=== PATIENT | male | born 1990 ===

== ENCOUNTER 2017-02-26 11:29 | Inpatient (IN) | payer OTHER ==
--- NOTE | 2017-02-26 12:47 | ED PDOC ---
HPI: Abdomen Time Seen by Provider: 02/26/17 11:52 Chief Complaint (Nursing): Abdominal Pain History Per: Patient History/Exam Limitations: no limitations Onset/Duration Of Symptoms: Waxing/Waning, Gradual (2 weeks), Worse Since (this am) Severity: Mild Location Of Pain/Discomfort: Epigastric Quality Of Discomfort: Cramping, Burning Associated Symptoms: Nausea, Vomiting. denies: Fever, Chills, Diarrhea, Back Pain, Chest Pain, Constipation, Urinary Symptoms Exacerbating Factors: Food Alleviating Factors: None Additional History Per: Patient Additional Complaint(s): no trauma no urinary complete Past Medical History Reviewed: Historical Data, Nursing Documentation, Vital Signs Vital Signs: Last Vital Signs Temp 98 F 02/26/17 11:45 Pulse 86 02/26/17 17:26 Resp 16 02/26/17 17:26 BP 119/64 02/26/17 17:26 Pulse Ox 98 02/26/17 17:26 - Medical History PMH: No Chronic Diseases - Surgical History Surgical History: No Surg Hx - Family History Family History: States: Unknown Family Hx - Living Arrangements Living Arrangements: With Family - Social History Current smoker - smoking cessation education provided: No - Home Medications Home Medications: Ambulatory Orders Medication Instructions Recorded Ranitidine HCl [Sunmark Acid 150 mg PO DAILY 02/26/17 [employer]] - Allergies Allergies/Adverse Reactions: Allergies Allergy/AdvReac Type Severity Reaction Status Date / Time No Known Allergies Allergy Verified 02/26/17 11:45 Review of Systems ROS Statement: Except As Marked, All Systems Reviewed And Found Negative Constitutional: Negative for: Fever, Chills Cardiovascular: Negative for: Chest Pain, Palpitations Respiratory: Negative for: Cough, Shortness of Breath Gastrointestinal: Positive for: Nausea, Vomiting, Abdominal Pain. Negative for : Diarrhea, Constipation, Melena, Hematochezia, Hematemesis Genitourinary Male: Negative for: Dysuria, Incontinence, Hematuria, Penile Discharge, Scrotal Pain, Penile Pain Neurological: Negative for: Weakness, Numbness Physical Exam - Reviewed Nursing Documentation Reviewed: Yes Vital Signs Reviewed: Yes - Physical Exam Appears: Positive for: Well, Uncomfortable Head Exam: Positive for: NORMAL INSPECTION, NORMOCEPHALIC Eye Exam: Positive for: Normal appearance, EOMI, PERRL. Negative for: Periorbital swelling, Periorbital tenderness Neck: Positive for: Normal, Painless ROM, Supple Cardiovascular/Chest: Positive for: Regular Rate, Rhythm. Negative for: Chest Non Tender, Edema, Gallop Respiratory: Positive for: Normal Breath Sounds. Negative for: Decreased Breath Sounds, Accessory Muscle Use, Crackles, Rales, Rhonchi, Stridor, Wheezing Gastrointestinal/Abdominal: Positive for: Normal Exam, Bowel Sounds, Soft. Negative for: Tenderness, Mass, Distended, Guarding, Hernia, Asicites Back: Positive for: Normal Inspection. Negative for: L CVA Tenderness, R CVA Tenderness Extremity: Positive for: Normal ROM. 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 Negative for: Motor/Sensory Deficits - Laboratory Results Result Diagrams: 02/26/17 13:10 02/26/17 13:10 - ECG ECG: Positive for: Interpreted By Me ECG Rhythm: Positive for: Normal QRS, Normal ST Segment, Sinus Rhythm. Negative for: ST/T Changes Interpretation Of Abn EKG: rate of 75, no evidence of ischemia O2 Sat by Pulse Oximetry: 98 Pulse Ox Interpretation: Normal - Progress ED Course And Treament: consulted Dr. Guzman will anticoagulant with lovenox and admit to hospitalist. pt agree's with plan. Re-evaluation Time: 17:51 Condition: Unchanged Disposition - Clinical Impression Clinical Impression: Portal vein thrombosis - Patient ED Disposition Is Patient to be Admitted: Yes Counseled Patient/Family Regarding: Studies Performed, Diagnosis, Need For Followup - Disposition Disposition: Routine/Home Disposition Time: 17:53 Condition: STABLE - Pt Status Changed To: Hospital Disposition Of: Inpatient - Admit Certification Admit to Inpatient:: After my assessment, the patient will require hospitalization for at least two midnights. This is because of the severity of symptoms shown, intensity of services needed, and/or the medical risk in this patient being treated as an outpatient. - POA Present On Arrival: Deep Vein Thrombosis / PE
[2017-02-26 13:25] LABS: BASO % 0.5 % (0.0-2.0); EOS # 0.1 K/uL (0.0-0.7); EOS % 1.5 % (0.0-4.0); HEMATOCRIT 40.4 % (35.0-51.0); LYMPH # 1.5 K/uL (1.0-4.3); LYMPH % 23.5 % (20.0-40.0); MEAN CELL VOLUME 85.3 fl (80.0-94.0); MEAN CORPUSCULAR HEMOGLOBIN 27.3 pg (27.0-31.0); MEAN PLATELET VOLUME 8.1 fl (7.2-11.7); MONO # 0.6 K/uL (0.0-0.8); MONO % 9.7 % (0.0-10.0); NEUT # 4.2 K/uL (1.8-7.0); NEUT % 64.8 % (50.0-75.0); NRBC % 0.1 % (0.0-0.0); RED CELL DISTRIBUTION WIDTH 14.5 % (11.5-14.5); WHITE BLOOD COUNT 6.5 K/uL (4.8-10.8)
[2017-02-26 13:32] LABS: ALB/GLOB RATIO 1.1 (1.0-2.1); ALKALINE PHOSPHATASE 226 U/L (38-126); ALT/SGPT 20 U/L (21-72); AMYLASE 83 U/L (30-110); AST/SGOT 65 U/L (17-59); BILIRUBIN,TOTAL 1.3 mg/dl (0.2-1.3); BLOOD UREA NITROGEN 10 mg/dl (9-20); CALCIUM 9.9 mg/dL (8.4-10.2); CARBON DIOXIDE 28 mmol/L (22-30); CHLORIDE 103 mmol/L (98-107); GFR AFRICAN-AMERICAN > 60; GLUCOSE,RANDOM 89 mg/dL (75-110); LIPASE 92 U/L (23-300); POTASSIUM 4.5 MMOL/L (3.6-5.0); SODIUM 146 mmol/l (132-148); TOTAL PROTEIN 8.1 G/DL (6.3-8.2)
[2017-02-26 13:44] LABS: URINE BACTERIA RARE (<OCC); URINE BILIRUBIN SMALL (NEGATIVE); URINE BLOOD NEGATIVE (NEGATIVE); URINE COLOR AMBER (YELLOW); URINE GLUCOSE (UA) NEG (Normal); URINE KETONE NEGATIVE (NEGATIVE); URINE LEUKOCYTE ESTERASE NEG Leu/uL (Negative); URINE PROTEIN 30 mg/dL (NEGATIVE)
--- NOTE | 2017-02-26 15:11 | US ---
HISTORY: ruq abd pain COMPARISON: None. TECHNIQUE: Sonographic evaluation of the right upper quadrant of the abdomen. FINDINGS: LIVER: Measures 13.1 cm in length. Normal echogenicity of the liver parenchyma. Echogenic mass in the superior right hepatic lobe, 5.9 x 6.5 x 6.9 cm. Vascularity demonstrated within the mass. Evaluation with multiphasic post-contrast CT examination is advised. No other hepatic mass is seen. No biliary ductal dilatation. GALLBLADDER: No cholelithiasis. Possible 2 mm polyp. No mural thickening. No pericholecystic fluid. Negative sonographic Turpin's sign. COMMON BILE DUCT: Measures 2 mm. No stones. No dilatation. PANCREAS: No mass. No pancreatic ductal dilatation. Possible intraluminal thrombus in splenic vein near portal confluence. Not definitively demonstrated. RIGHT KIDNEY: Measures 13.1 cm in length. Normal echogenicity. Three simple cysts. Upper pole, 1.2 x 1.3 x 1.5 cm. Mid kidney, 1.3 x 1.4 x 1.5 cm. Lower pole, 1.7 x 1.8 x 2.1 cm. AORTA: No aneurysmal dilatation. IVC: Unremarkable. OTHER FINDINGS: None . IMPRESSION: With 6.9 cm echogenic mass in right lobe of liver. Further evaluation with multiphasic contrast enhanced CT is advised. Possible thrombus within splenic vein near the confluence. Three simple right renal cysts. Possible tiny gallbladder polyp.
[2017-02-26] MEDS ORDERED: Iohexol 300 100 ML IJ ONE (15:19)
[2017-02-26] MEDS ORDERED: Sodium Chloride 0.9% 50 ML IV ONE (15:19)
--- NOTE | 2017-02-26 15:50 | RAD ---
HISTORY: epigastric abd pain COMPARISON: No prior. FINDINGS: BOWEL: Normal. No obstruction. No free air. BONES: Normal. OTHER FINDINGS: None. IMPRESSION: No active disease.
--- NOTE | 2017-02-26 16:42 | CT ---
PROCEDURE: CT Abdomen and Pelvis with contrast HISTORY: Ruq abd pain mass? COMPARISON: Abdominal ultrasound examination 02/26/2017 TECHNIQUE: Contrast dose: 95 mL Omnipaque 300 Radiation dose: Total exam DLP = 734.74 mGy-cm. This CT exam was performed using one or more of the following dose reduction techniques: Automated exposure control, adjustment of the mA and/or kV according to patient size, and/or use of iterative reconstruction technique. FINDINGS: LOWER THORAX: Unremarkable. LIVER: Normal size and contour. Heterogeneous enhancing mass, 7.4 cm, rounded, in the inferior right hepatic lobe. There are areas of relative decreased attenuation within this mass. These do not look like liquids active necrosis. Possible cavernous hemangioma. Consider evaluation with multiphasic contrast enhanced CT. No other hepatic mass. No biliary ductal dilatation. Findings consistent with portal venous thrombosis and splenic venous thrombosis. There is sharp cut off of the splenic vein at the level of the portal confluence with low attenuation seen within the portal vein. GALLBLADDER AND BILE DUCTS: Unremarkable. PANCREAS: Unremarkable. No gross lesion or ductal dilatation. SPLEEN: Unremarkable. ADRENALS: Unremarkable. No mass. KIDNEYS AND URETERS: Bilateral renal cysts. The right renal cysts were demonstrated on ultrasound. Smaller left renal cysts are identified. 3 mm nonobstructing left lower pole renal calculus. . No hydronephrosis. VASCULATURE: Portal venous thrombosis. Splenic venous thrombosis at the level of the confluence. No evidence of abdominal aortic aneurysm. BOWEL: Unremarkable. No obstruction. No gross mural thickening. APPENDIX: Normal appendix. PERITONEUM: Unremarkable. No free fluid. No free air. LYMPH NODES: Unremarkable. No enlarged lymph nodes. BLADDER: Unremarkable. REPRODUCTIVE: Normal prostate BONES: No acute fracture. OTHER FINDINGS: None. IMPRESSION: 7.4 cm mass in the inferior right hepatic lobe. Recommend evaluation with multiphasic contrast enhanced computed tomography utilizing hemangioma protocol. Portal venous thrombosis in splenic venous thrombosis. Nonobstructing 3 mm left lower pole renal calculus. Small bilateral renal cysts.
[2017-02-26] MEDS ORDERED: Enoxaparin 100 mg Syringe SC STA ×2 (17:35→18:01)
[2017-02-26 17:36] LABS: PARTIAL THROMBOPLASTIN TIME 27.4 SECONDS (23.3-32.5)
[2017-02-26 17:54] VITALS: BMI 24.5
--- NOTE | 2017-02-26 17:55 | CP.PCM.HP ---
History of Present Illness - History of Present Illness History of Present Illness: Chief Complaint: Stomach Pain HPI: 26 year old male with no past medical history presents with a two-week history of moderate to severe burning midepigastric abdominal pain, worsening with eating. Patient has not been able to eat properly for past 2 weeks, and has sustained mild weight loss. In the emergency room, patient was found to have portal and splenic vein thrombosis as well as possible cavernous hemangioma in liver. Will obtain triple phase CT for further evaluation. Hypercoagulable work up in process, surgery consult ordered in ER. Lovenox full AC given, one dose. Will start patient on Eliquis. Otherwise no complaints at this time, vitals are stable, no acute distress. Discussed with surgery, IR, and ER physicians. ROS: Per HPI, all other systems reviewed negative by me PMH: denies PSH: denies FH: denies SH: denies tobacco, etoh, ivdu ALLERGIES: NKDA MEDICATIONS: reviewed and as below EXAM Temp Pulse Resp BP Pulse Ox 98.5 F 95 H 18 116/70 98 02/26/17 17:51 02/26/17 17:51 02/26/17 17:51 02/26/17 17:51 02/26/17 17:54 GENERAL APPEARANCE: Well developed, well nourished, alert and cooperative, and appears to be in no acute distress. HEAD: normocephalic, atraumatic EYES: PERRL, EOMI. Vision is grossly intact. EARS: External auditory canals clear, hearing grossly intact. NOSE: No nasal discharge. THROAT: Oral cavity and pharynx normal. No inflammation, swelling, exudate, or lesions. NECK: Neck supple, non-tender without lymphadenopathy, masses or thyromegaly. CARDIAC: Normal S1 and S2. No S3, S4 or murmurs. Rhythm is regular. LUNGS: Clear to auscultation and percussion without rales, rhonchi, wheezing or diminished breath sounds. ABDOMEN: mild generalized tenderness. Positive bowel sounds. Soft, nondistended. No guarding or rebound. No masses. MUSKULOSKELETAL: Adequately aligned spine. ROM intact spine and extremities. BACK: Examination of the spine reveals no spinal deformity, symmetry of spinal muscles, EXTREMITIES: No significant deformity or joint abnormality. No edema. NEUROLOGICAL: CN II-XII intact. Strength and sensation symmetric and intact throughout. Reflexes 2+ throughout. SKIN: Skin normal color, texture and turgor with no lesions or eruptions. PSYCHIATRIC: The mental examination revealed the patient was oriented to person , place, and time. Normal affect. LABS: 02/26/17 13:10 02/26/17 13:[address] ABD: LIVER: Normal size and contour. Heterogeneous enhancing mass, 7.4 cm, rounded, in the inferior right hepatic lobe. There are areas of relative decreased attenuation within this mass. These do not look like liquids active necrosis. Possible cavernous hemangioma. Consider evaluation with multiphasic contrast enhanced CT. No other hepatic mass. No biliary ductal dilatation. Findings consistent with portal venous thrombosis and splenic venous thrombosis. There is sharp cut off of the splenic vein at the level of the portal confluence with low attenuation seen within the portal vein. KIDNEYS AND URETERS: Bilateral renal cysts. The right renal cysts were demonstrated on ultrasound. Smaller left renal cysts are identified. 3 mm nonobstructing left lower pole renal calculus. . No hydronephrosis. VASCULATURE: Portal venous thrombosis. Splenic venous thrombosis at the level of the confluence. No evidence of abdominal aortic aneurysm. BOWEL: Unremarkable. No obstruction. No gross mural thickening. IMPRESSION: 7.4 cm mass in the inferior right hepatic lobe. Recommend evaluation with multiphasic contrast enhanced computed tomography utilizing hemangioma protocol. Portal venous thrombosis in splenic venous thrombosis. Nonobstructing 3 mm left lower pole renal calculus. Small bilateral renal cysts. EKG NSR, rate 75, no signs of acute ischemia or infarct ACTIVE MEDICATIONS Ondansetron [Zofran Inj] 4 mg IVP Q6 PRN Enoxaparin [Lovenox] 90 mg SC STAT STA Anticoagulation Clinical Indication: DVT/PE Prevention Apixaban [Eliquis] 10 mg PO DAILY Anticoagulation Clinical Indication: Other Other: PORTAL AND SPLENIC VEIN THROMBOSIS ASSESSMENT AND PLAN 26 year old male with no past medical history presents with a two-week history of moderate to severe burning midepigastric abdominal pain, worsening with eating. Patient has not been able to eat properly for past 2 weeks, and has sustained mild weight loss. In the emergency room, patient was found to have portal and splenic vein thrombosis as well as possible cavernous hemangioma in liver. Will obtain triple phase CT for further evaluation. Hypercoaguable work up in process, surgery consult ordered in ER. Lovenox full AC given, one dose. Will start patient on Eliquis. Otherwise no complaints at this time, vitals are stable, no acute distress. Discussed with surgery and ER physicians. Portal and Splenic Vein Thromboses + CT imaging study for portal and splenic vein thromboses Surgery and IR consults appreciated, discussed. Lovenox 100mg SC given in ER Eliquis 10 mg ordered for tomorrow AM, will give patient voucher for one month supply on D/C Hypercoagulable workup ordered, will follow up Antiphospholipid Antithrombin Factor V Leiden Protein C&S Repeat CBC, CMP tomorrow Possible Hepatic Cavernous Hemangioma no evidence of hemorrhage on CT Triple Phase Study for tomorrow AM Poor PO intake 2/2 abdominal pain with eating Ensure Plus TID VTE ppx SCDs Present on Admission - Present on Admission Any Indicators Present on Admission: No Past Patient History - Past Social History Smoking Status: Never Smoked - PSYCHIATRIC Hx Substance Use: No - SURGICAL HISTORY Hx Surgeries: No - ANESTHESIA Hx Anesthesia: No Meds Allergies/Adverse Reactions: Allergies Allergy/AdvReac Type Severity Reaction Status Date / Time No Known Allergies Allergy Verified 02/26/17 11:45 Results - Vital Signs Recent Vital Signs: Last Vital Signs Temp 98.5 F 02/26/17 17:51 Pulse 95 H 02/26/17 17:51 Resp 18 02/26/17 17:51 BP 116/70 02/26/17 17:51 Pulse Ox 98 02/26/17 17:54 - Labs Result Diagrams: 02/26/17 13:10 02/26/17 13:10 Labs: Laboratory Results - last 24 hr 02/26/17 02/26/17 13:10 13:25 WBC 6.5 RBC 4.73 Hgb 12.9 Hct 40.4 MCV 85.3 MCH 27.3 MCHC 32.0 L RDW 14.5 Plt Count 250 MPV 8.1 Neut % (Auto) 64.8 Lymph % (Auto) 23.5 [place] % (Auto) 9.7 Eos % (Auto) 1.5 Baso % (Auto) 0.5 Neut # 4.2 Lymph # 1.5 [place] # 0.6 Eos # 0.1 Baso # 0.0 PT 10.7 INR 1.03 APTT 27.4 Sodium 146 Potassium 4.5 Chloride 103 Carbon Dioxide 28 Anion Gap 20 BUN 10 Creatinine 0.9 Est GFR ( Amer) > 60 Est GFR (Non-Af Amer) > 60 Random Glucose 89 Calcium 9.9 Total Bilirubin 1.3 AST 65 H ALT 20 L Alkaline Phosphatase 226 H Troponin I < 0.0120 Total Protein 8.1 Albumin 4.3 Globulin 3.8 Albumin/Globulin Ratio 1.1 Amylase 83 Lipase 92 Urine Color Mallory Urine Clarity Cloudy Urine pH 7.0 Ur Specific [place] 1.028 Urine Protein 30 Urine Glucose (UA) Neg Urine Ketones Negative Urine Blood Negative Urine Nitrate Negative Urine Bilirubin Small Urine Urobilinogen 4.0 Ur Leukocyte Esterase Neg Ur Squamous Epith Cells 1 Amorphous Sediment Rare H Urine Bacteria Rare
[2017-02-26] MEDS ORDERED: Enoxaparin 100 mg Syringe SC SCH (21:00)
--- NOTE | 2017-02-26 21:04 | CP.PCM.CON ---
History of Present Illness - History of Present Illness History of Present Illness: GENERAL SURGERY CONSULT FOR DR. MEJIA 26yoM with no PMHx presents to the ED with abdominal pain. The pain began 2 weeks ago in the epigastric area and became worse 3 days ago. The pain is located in the epigastric area and radiates to the suprapubic area. The pain is worse after eating. He sometimes feels nauseous and vomited a few times yesterday and once this morning, non bloody emesis. His last BM was today and it was normal. Patient also reports some burning after eating and feeling like the "food is coming back up". He takes Ranitidine sometimes for these symptoms which he obtains from his mother in [facility]. PMHx: none Surgeries: none Allergies: none Social history: never smoked, couple beers a month, no drugs, from [facility] Fam Hx: no hx of coagulation disorders, brothers are healthy, mother has "stomach and colon problems", father at 50yo from gastric cancer Review of Systems - Review of Systems All systems: reviewed and no additional remarkable complaints except (as per HPI ) Past Patient History - Past Social History Smoking Status: Never Smoked - PSYCHIATRIC Hx Substance Use: No - SURGICAL HISTORY Hx Surgeries: No - ANESTHESIA Hx Anesthesia: No Meds Allergies/Adverse Reactions: Allergies Allergy/AdvReac Type Severity Reaction Status Date / Time No Known Allergies Allergy Verified 02/26/17 11:45 - Medications Medications: Current Medications Heparin Sodium/Dextrose (Heparin 25,000 Units/250ml In D5w) 250 mls @ 12 mls/ hr IV .[id number] KIMBERLY PRN Reason: Protocol Ondansetron HCl (Zofran Inj) 4 mg IVP Q6 PRN PRN Reason: Nausea/Vomiting Physical Exam - Constitutional Appears: Non-toxic, No Acute Distress - Head Exam Head Exam: ATRAUMATIC, NORMAL INSPECTION - Eye Exam Eye Exam: EOMI, Normal appearance - Respiratory Exam Respiratory Exam: NORMAL BREATHING PATTERN. absent: Respiratory Distress - Cardiovascular Exam Cardiovascular Exam: +S1, +S2 - GI/Abdominal Exam GI & Abdominal Exam: Soft, Tenderness (mild tenderness epigastric). absent: Distended, Firm, Guarding, Rebound, Rigid - Extremities Exam Extremities exam: Positive for: normal capillary refill, normal inspection. Negative for: calf tenderness - Neurological Exam Neurological exam: Alert, CN II-XII Intact, Oriented x3 - Psychiatric Exam Psychiatric exam: Normal Affect, Normal Mood - Skin Skin Exam: Dry, Normal Color, Warm Results - Vital Signs Recent Vital Signs: Last Vital Signs Temp 98.5 F 02/26/17 17:51 Pulse 95 H 02/26/17 17:51 Resp 18 02/26/17 17:51 BP 116/70 02/26/17 17:51 Pulse Ox 98 02/26/17 17:54 - Labs Result Diagrams: 02/26/17 13:10 02/26/17 13:10 Assessment & Plan - Assessment and Plan (Free Text) Assessment: 26yoM with no PMHx who presented with abdominal pain and was found to have hepatic mass as well as portal vein thrombosis and splenic vein thrombosis on CT - Afebrile, VSS - Alk phos elevated at 226 - AST 65, ALT 20 - Lipase WNL - No general surgery intervention at this time - Recommend IR intervention or hepatobiliary surgeon input - Discussed plan with Dr. Thomas Covington PGY-2
--- NOTE | 2017-02-26 21:21 | CP.PCM.CON ---
History of Present Illness - History of Present Illness History of Present Illness: HEPATOBILIARY SURGERY CONSULT FOR DR. HANLEY 26yoM with no PMHx presents to the ED with abdominal pain. The pain began 2 weeks ago in the epigastric area and became worse 3 days ago. The pain is located in the epigastric area and radiates to the suprapubic area. The pain is worse after eating. He sometimes feels nauseous and vomited a few times yesterday and once this morning, non bloody emesis. His last BM was today and it was normal. Patient also reports some burning after eating and feeling like the "food is coming back up". He takes Ranitidine sometimes for these symptoms which he obtains from his mother in [facility]. PMHx: none Surgeries: none Allergies: none Social history: never smoked, couple beers a month, no drugs, from [facility] Fam Hx: no hx of coagulation disorders, brothers are healthy, mother has "stomach and colon problems", father at 50yo from gastric cancer Review of Systems - Review of Systems All systems: reviewed and no additional remarkable complaints except ( PER HPI ) Past Patient History - Past Social History Smoking Status: Never Smoked - PSYCHIATRIC Hx Substance Use: No - SURGICAL HISTORY Hx Surgeries: No - ANESTHESIA Hx Anesthesia: No Meds Allergies/Adverse Reactions: Allergies Allergy/AdvReac Type Severity Reaction Status Date / Time No Known Allergies Allergy Verified 02/26/17 11:45 - Medications Medications: Current Medications Heparin Sodium/Dextrose (Heparin 25,000 Units/250ml In D5w) 250 mls @ 12 mls/ hr IV .[id number] KIMBERLY PRN Reason: Protocol Ondansetron HCl (Zofran Inj) 4 mg IVP Q6 PRN PRN Reason: Nausea/Vomiting Physical Exam - Constitutional Appears: Non-toxic, No Acute Distress - Head Exam Head Exam: ATRAUMATIC, NORMAL INSPECTION - Eye Exam Eye Exam: EOMI, Normal appearance - Respiratory Exam Respiratory Exam: NORMAL BREATHING PATTERN. absent: Respiratory Distress - Cardiovascular Exam Cardiovascular Exam: +S1, +S2 - GI/Abdominal Exam GI & Abdominal Exam: Soft, Tenderness (mild tenderness epigastric). absent: Distended, Firm, Guarding, Rebound, Rigid - Extremities Exam Extremities exam: Positive for: normal inspection. Negative for: calf tenderness - Neurological Exam Neurological exam: Alert, CN II-XII Intact, Oriented x3 - Skin Skin Exam: Dry, Normal Color, Warm Results - Vital Signs Recent Vital Signs: Last Vital Signs Temp 98.5 F 02/26/17 17:51 Pulse 95 H 02/26/17 17:51 Resp 18 02/26/17 17:51 BP 116/70 02/26/17 17:51 Pulse Ox 98 02/26/17 17:54 - Labs Result Diagrams: 02/26/17 13:10 02/26/17 13:10 Assessment & Plan - Assessment and Plan (Free Text) Assessment: 26yoM with no PMHx who presented with abdominal pain and was found to have hepatic mass as well as portal vein thrombosis and splenic vein thrombosis on CT - Afebrile, VSS - Alk phos elevated at 226 - AST 65, ALT 20 - Lipase WNL - CT showed: portal vein thrombosis and splenic vein thrombosis; heterogeneous enhancing rounded mass 7.4cm in inferior right hepatic lobe, areas of decreased attenuation within mass, possible cavernous hemangioma, consider evaluation with multiphasic contrast enhanced CT - Hypercoagulable workup ordered by medicine team, will follow up: Antiphospholipid, Antithrombin, Factor V Leiden, Protein C&S - Triple Phase Study to further evaluate liver mass ordered for tomorrow AM - Ordered AFP, Hepatitis screen - Lovenox given in ED - DCed Eliquis that was ordered to start tomorrow AM, patient is NOT to be on any oral anticoagulation in case needs to go to OR, needs to be on Heparin drip instead, discussed with hospitalist - Discussed plan with Dr. Fariha Covington PGY-2
[2017-02-26] MEDS ORDERED: Sodium Chloride 0.9% 1,000 ML IV SCH (23:55)
[2017-02-27 04:12] LABS: HEMATOCRIT 37.2 % (35.0-51.0); MEAN CELL VOLUME 83.3 fl (80.0-94.0); MEAN CORPUSCULAR HEMOGLOBIN 27.9 pg (27.0-31.0); MEAN CORPUSCULAR HGB CONC 33.4 g/dL (33.0-37.0); RED CELL DISTRIBUTION WIDTH 14.2 % (11.5-14.5); WHITE BLOOD COUNT 6.6 K/uL (4.8-10.8)
[2017-02-27 04:36] LABS: BLOOD UREA NITROGEN 9 mg/dl (9-20); GFR AFRICAN-AMERICAN > 60; GLUCOSE,RANDOM 94 mg/dL (75-110)
[2017-02-27 04:37] LABS: PARTIAL THROMBOPLASTIN TIME 30.6 SECONDS (23.3-32.5)
[2017-02-27 04:39] LABS: ALB/GLOB RATIO 1.1 (1.0-2.1); ALKALINE PHOSPHATASE 208 U/L (38-126); ALT/SGPT 32 U/L (21-72); AST/SGOT 56 U/L (17-59); BILIRUBIN,TOTAL 1.2 mg/dl (0.2-1.3); CALCIUM 9.5 mg/dL (8.4-10.2); CARBON DIOXIDE 23 mmol/L (22-30); CHLORIDE 104 mmol/L (98-107); POTASSIUM 3.9 MMOL/L (3.6-5.0); SODIUM 142 mmol/l (132-148); TOTAL PROTEIN 7.9 G/DL (6.3-8.2)
[2017-02-27] MEDS: Heparin 25,000units in D5W 250 ML IV SCH ×2 (05:59→22:57)
--- NOTE | 2017-02-27 08:20 | CP.PCM.PN ---
Subjective - Date & Time of Evaluation Date of Evaluation: 02/27/17 Time of Evaluation: 08:13 - Subjective Subjective: Hepatobiliary Surgery - Dr. Fried Pt S&E. ADAM. Pt has mild epigastric pain, unchanged. He denies any other complaints including N/V, F/C, SOB/CP. Pt is aware of plan for CT today. Objective - Vital Signs/Intake and Output Vital Signs (last 24 hours): Temp Pulse Resp BP Pulse Ox 98.6 F 87 18 123/77 98 02/26/17 22:00 02/26/17 22:00 02/26/17 23:33 02/26/17 22:00 02/26/17 22:00 - Medications Medications: Current Medications Heparin Sodium/Dextrose (Heparin 25,000 Units/250ml In D5w) 250 mls @ 16 mls/ hr IV .[id number] KIMBERLY PRN Reason: Protocol Last Admin: 02/27/17 05:59 Dose: 16 mls/hr Morphine Sulfate (Morphine) 2 mg IVP Q4 PRN PRN Reason: Pain, moderate (4-7) Ondansetron HCl (Zofran Inj) 4 mg IVP Q6 PRN PRN Reason: Nausea/Vomiting - Labs Labs: 02/27/17 04:00 02/27/17 04:00 PT 11.4 SECONDS (9.6-11.2) H 02/27/17 04:10 INR 1.10 (0.92-1.08) H 02/27/17 04:10 APTT 30.6 SECONDS (23.3-32.5) 02/27/17 04:10 - Constitutional Appears: No Acute Distress - Head Exam Head Exam: ATRAUMATIC, NORMOCEPHALIC - Eye Exam Eye Exam: Normal appearance. absent: Scleral icterus - Respiratory Exam Respiratory Exam: NORMAL BREATHING PATTERN. absent: Respiratory Distress - GI/Abdominal Exam GI & Abdominal Exam: Soft, Tenderness (mild ttp epigastric). absent: Distended , Guarding, Rigid, Rebound - Neurological Exam Neurological Exam: Alert, Oriented x3 - Psychiatric Exam Psychiatric exam: Normal Affect, Normal Mood - Skin Skin Exam: Dry, Intact Assessment and Plan - Assessment and Plan (Free Text) Assessment: 26M w/ no PMH, w/ epigastric pain, found to have portal and splenic vein thrombosis and hepatic mass - F/U Triple phase CT Liver - F/U Hypercoagulable w/u - Heparin drip for anticoagulation, No oral anticoagulants DW Dr Fariha Jackson PGY2
--- NOTE | 2017-02-27 08:40 | CARD ---
APPROVED REPORT EKG Measurement Heart [id number] <Conclusion> Normal sinus rhythm Incomplete right bundle branch block Borderline ECG
[2017-02-27] MEDS ORDERED: Sodium Chloride 0.9% 50 ML IV ONE (10:17)
[2017-02-27] MEDS ORDERED: Iohexol 300 100 ML IJ ONE (10:17)
--- NOTE | 2017-02-27 12:19 | CT ---
PROCEDURE: CT Abdomen and Pelvis with and without intravenous contrast HISTORY: portal and splenic vein thromboses COMPARISON: February 26, 2017. CT abdomen and pelvis. TECHNIQUE: Axial images of the abdomen were obtained in the pre contrast, portal venous and delayed phases of enhancement. Coronal and sagittal reformats were generated. Contrast dose: 95 cc Omnipaque 300. Radiation dose: Total exam DLP = 1846.15 mGy-cm. This CT exam was performed using one or more of the following dose reduction techniques: Automated exposure control, adjustment of the mA and/or kV according to patient size, and/or use of iterative reconstruction technique. FINDINGS: LOWER THORAX: LIVER: Hypervascular mass in the posterior segment of the right hepatic lobe measuring 7.2 x 8.2 cm. On the arterial phase see enhancement pattern is nonspecific, not diagnostic for hepatocellular carcinoma. No additional hepatic masses identified. Portal vein thrombosis identified. This includes intrahepatic branches, the main portal vein. Beyond splenic vein thrombosis near the confluence with the main portal vein the remainder of splenic vein is patent with normal course and caliber. GALLBLADDER AND BILE DUCTS: Collapsed common no focal or diffuse abnormalities. PANCREAS: Submit diffuse and infiltrative mass in the head of the pancreas. The mass measures 4.6 x 4.2 cm. The mass displays contiguity with these celiac axis periods there is no compelling evidence for direct invasion of either celiac axis, splenic artery or main hepatic artery. Gastroduodenal branch is likewise contiguous with but not invaded by the pancreatic head mass. Regional adenopathy in the head of the pancreas in trice hepatis region is poorly delineated. SPLEEN: Unremarkable spleen with respect to size and contrast-enhancing characteristics. ADRENALS: Unremarkable. No mass. KIDNEYS AND URETERS: Nonobstructing renal calculi bilaterally. Multiple simple renal cysts bilaterally the largest 1.6 cm in the right kidney. VASCULATURE: Unremarkable. No aortic aneurysm. BOWEL: Unremarkable. No obstruction. No gross mural thickening. APPENDIX: Normal appendix. PERITONEUM: Unremarkable. No free fluid. No free air. LYMPH NODES: Unremarkable. No enlarged lymph nodes. BLADDER: Unremarkable. REPRODUCTIVE: Unremarkable. BONES: No acute fracture. OTHER FINDINGS: None. IMPRESSION: 1. Solitary hepatic mass posterior segment right hepatic lobe 7.2 x 8.2 cm. Nonspecific arterial phase is not diagnostic for primary hepatocellular carcinoma. 2. Pancreatic head mass with diffuse infiltration and regional adenopathy. 3. Portal vein thrombosis primarily affecting main portal vein and hepatic branches. Distal splenic vein is patent. Small branch collaterals identified right upper quadrant trice hepatis region. The thrombosed main portal vein measures 1.8 cm. Communication of results: I discussed these findings with the ordering physician Dr. Brady 11:57. Study completed at 11:09. February 27, 2017.
--- NOTE | 2017-02-27 12:53 | CP.PCM.PN ---
Addendum entered and electronically signed by Morris Andre MD 02/27/17 15: 56: Assessment and Plan: 2-Liver mass/Possible hepatic hemangioma/Hepatocellular carcinoma Surgery team as per Dr Guzman recommends IR evaluation or hepatic surgeon Original Note: <Morris Andre - Last Filed: 02/27/17 13:03> Subjective - Date & Time of Evaluation Date of Evaluation: 02/27/17 Time of Evaluation: 11:40 - Subjective Subjective: 26 y/o M admitted for portal and splenic vein thromboses seen at bedside in not acute distress. Patient denies vomiting, nausea, fever, dizziness, diarrhea, CP , SOB, headaches. He denies Hx of similar episodes in the past. He states father of liver Ca 6 years ago. He underwent CT triple phase and is scheduled for abd MRI. Denies any episodes of bleeding. Urinating with no difficulty. Patient admits losing 10 lbs of wt recently but he has been eating less because of abd pain. Objective - Vital Signs/Intake and Output Vital Signs (last 24 hours): Temp Pulse Resp BP Pulse Ox 98.1 F 80 20 109/67 98 02/27/17 09:15 02/27/17 09:15 02/27/17 09:15 02/27/17 09:15 02/27/17 09:15 - Medications Medications: Current Medications Heparin Sodium/Dextrose (Heparin 25,000 Units/250ml In D5w) 250 mls @ 16 mls/ hr IV .[id number] [facility]IMBERLY PRN Reason: Protocol Last Admin: 02/27/17 05:59 Dose: 16 mls/hr Morphine Sulfate (Morphine) 2 mg IVP Q4 PRN PRN Reason: Pain, moderate (4-7) Ondansetron HCl (Zofran Inj) 4 mg IVP Q6 PRN PRN Reason: Nausea/Vomiting - Labs Labs: 02/27/17 04:00 02/27/17 04:00 PT 11.4 SECONDS (9.6-11.2) H 02/27/17 04:10 INR 1.10 (0.92-1.08) H 02/27/17 04:10 APTT 30.6 SECONDS (23.3-32.5) 02/27/17 04:10 - Constitutional Appears: Non-toxic, No Acute Distress - Head Exam Head Exam: ATRAUMATIC, NORMAL INSPECTION, NORMOCEPHALIC - Eye Exam Eye Exam: PERRL - ENT Exam ENT Exam: Mucous Membranes Moist, Normal Exam - Neck Exam Neck Exam: Full ROM, Normal Inspection - Respiratory Exam Respiratory Exam: Clear to Ausculation Bilateral, NORMAL BREATHING PATTERN - Cardiovascular Exam Cardiovascular Exam: REGULAR RHYTHM, +S1, +S2. absent: Murmur - GI/Abdominal Exam GI & Abdominal Exam: Soft, Tenderness (Epigastrium), Normal Bowel Sounds. absent: Distended, Guarding, Rebound - Back Exam Back Exam: NORMAL INSPECTION - Neurological Exam Neurological Exam: Alert, Awake, Oriented x3 Neuro motor strength exam: Left Upper Extremity: 5, Right Upper Extremity: 5, Left Lower Extremity: 5, Right Lower Extremity: 5 - Psychiatric Exam Psychiatric exam: Normal Affect, Normal Mood - Skin Skin Exam: Intact, Normal Color, Warm Assessment and Plan - Assessment and Plan (Free Text) Assessment: 1-Portal and Splenic Vein Thromboses(stable) + CT imaging study for portal and splenic vein thromboses Confirmed on Liver triple phase CT F/U Surgery recs On Heparin drip for anticoag F/U Hypercoagulable work up F/U Hematology recs(Dr Becerra) 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 Mass in the head of the pancreas, diffuse infiltration with regional adenopathies AFP elevated 372 Hep B Ag and Hep A Ab neg F/U MRI of the abdomen 3-VTE ppx SCDs <Di Brady - Last Filed: 02/27/17 16:32> Objective - Vital Signs/Intake and Output Vital Signs (last 24 hours): Temp Pulse Resp BP Pulse Ox 98.1 F 80 20 109/67 98 02/27/17 09:15 02/27/17 09:15 02/27/17 09:15 02/27/17 09:15 02/27/17 09:15 - Medications Medications: Current Medications Heparin Sodium/Dextrose (Heparin 25,000 Units/250ml In D5w) 250 mls @ 16 mls/ hr IV .[id number] KIMBERLY PRN Reason: Protocol Last Admin: 02/27/17 05:59 Dose: 16 mls/hr Morphine Sulfate (Morphine) 2 mg IVP Q4 PRN PRN Reason: Pain, moderate (4-7) Ondansetron HCl (Zofran Inj) 4 mg IVP Q6 PRN PRN Reason: Nausea/Vomiting - Labs Labs: PT 11.4 SECONDS (9.6-11.2) H 02/27/17 04:10 INR 1.10 (0.92-1.08) H 02/27/17 04:10 APTT 74.9 SECONDS (23.3-32.5) H* D 02/27/17 11:48 Attending/Attestation - Attestation I have personally seen and examined this patient.: Yes I have fully participated in the care of the patient.: Yes I have reviewed all pertinent clinical information, including history, physical exam and plan: Yes Notes (Text): 02/27/17 16:30 Seen and examined with Dr. Morris Andre, Resident. Agree with plan and findings as above. 26 year old male with no past medical history presented with a two week history of pain with eating. Found to have portal and splenic vein thromboses. Liver and pancreatic mass with elevated AFP. Consider HCC, discussed with Radiology, general surgery, IR. Patient to have MRI with and without contrast for further evaluation. Patient on Heparin drip for possible OR? Subsequent plan pending further diagnostic studies. Patient stable, no acute distress. Ensure ordered for nutritional supplementation.
--- NOTE | 2017-02-27 14:57 | CP.PCM.PN ---
Subjective - Date & Time of Evaluation Date of Evaluation: 02/27/17 Time of Evaluation: 14:10 - Subjective Subjective: Patient was seen and examined at the bedside. Objective - Vital Signs/Intake and Output Vital Signs (last 24 hours): Temp Pulse Resp BP Pulse Ox 98.1 F 80 20 109/67 98 02/27/17 09:15 02/27/17 09:15 02/27/17 09:15 02/27/17 09:15 02/27/17 09:15 - Medications Medications: Current Medications Heparin Sodium/Dextrose (Heparin 25,000 Units/250ml In D5w) 250 mls @ 16 mls/ hr IV .[id number] KIMBERLY PRN Reason: Protocol Last Admin: 02/27/17 05:59 Dose: 16 mls/hr Morphine Sulfate (Morphine) 2 mg IVP Q4 PRN PRN Reason: Pain, moderate (4-7) Ondansetron HCl (Zofran Inj) 4 mg IVP Q6 PRN PRN Reason: Nausea/Vomiting - Labs Labs: PT 11.4 SECONDS (9.6-11.2) H 02/27/17 04:10 INR 1.10 (0.92-1.08) H 02/27/17 04:10 APTT 74.9 SECONDS (23.3-32.5) H* D 02/27/17 11:48 - Constitutional Appears: Well, Non-toxic, No Acute Distress - Head Exam Head Exam: ATRAUMATIC, NORMAL INSPECTION, NORMOCEPHALIC - Eye Exam Eye Exam: EOMI, Normal appearance, PERRL Pupil Exam: NORMAL ACCOMODATION, PERRL - ENT Exam ENT Exam: Mucous Membranes Moist, Normal Exam - Neck Exam Neck Exam: Full ROM, Normal Inspection - Respiratory Exam Respiratory Exam: NORMAL BREATHING PATTERN - Cardiovascular Exam Cardiovascular Exam: REGULAR RHYTHM, +S1, +S2 - GI/Abdominal Exam GI & Abdominal Exam: Soft, Normal Bowel Sounds Additional comments: Very mildly tender in the RUQ, ND, no rebound, no guarding - Rectal Exam Rectal Exam: Deferred - Extremities Exam Extremities Exam: Full ROM, Normal Inspection - Neurological Exam Neurological Exam: Alert, Awake, CN II-XII Intact, Oriented x3 - Psychiatric Exam Psychiatric exam: Normal Affect, Normal Mood - Skin Skin Exam: Dry, Intact, Normal Color, Warm Assessment and Plan - Assessment and Plan (Free Text) Assessment: 26 y.o. male with Liver mass Plan: - Keep NPO - IV fluids - CT scan triple phase - Surgical oncology follow up - Will follow
[2017-02-27] MEDS ORDERED: Sodium Chloride 0.9% 450 ML IV ONE (15:56)
[2017-02-27] MEDS ORDERED: Gadodiamide 287 MG/ML VIAL (15ML) IV ONE (15:56)
[2017-02-27] MEDS: Potassium Ch 20mEq in D5-1/2NS 1,000 ML IV SCH (21:03)
--- NOTE | 2017-02-27 21:29 | CP.PCM.CON ---
History of Present Illness - History of Present Illness History of Present Illness: 26 year old male with no past medical history admitted with abdominal pain found to have portal vein thrombosis, liver mass, and pancreatic head mass. The patient has been experiencing abdominal pain for about 2 weeks time with 5-10 pound weightloss. He denies nausea and vomiting, has no fevers and chills. Triple phase CT is not suggestive of classic radiographic enhancement seen in hepatocellular carcinoma but revealed a pancreatic head mass with local adenopathy. An MRI of the abdomen is pending. The patient is currently receiving therapeutic anticoauglation for portal vein thrombosis and reports to less pain with this. Past medical history: None Past surgical history: None Family history: Cousin of stroke at 22 Social history: Denies tobacco, alcohol, and illicit drug use. Allergies: NKA Review of systems: All remaining review of systems including HEENT, cardiovascular, respiratory, gastrointestinal, genitourinary, musculoskeletal, dermatologic, neurologic, and psychiatric are negative unless mentioned in the HPI. Past Patient History - Past Medical History & Family History Past Medical History?: No - Past Social History Smoking Status: Never Smoked - MUSCULOSKELETAL/RHEUMATOLOGICAL Hx Falls: No - PSYCHIATRIC Hx Substance Use: No - SURGICAL HISTORY Hx Surgeries: No - ANESTHESIA Hx Anesthesia: No Meds Allergies/Adverse Reactions: Allergies Allergy/AdvReac Type Severity Reaction Status Date / Time No Known Allergies Allergy Verified 02/26/17 11:45 - Medications Medications: Current Medications Heparin Sodium/Dextrose (Heparin 25,000 Units/250ml In D5w) 250 mls @ 16 mls/ hr IV .[id number] KIMBERLY PRN Reason: Protocol Last Admin: 02/27/17 05:59 Dose: 16 mls/hr Potassium Chloride/Dextrose/Sod Cl (Potassium Chl 20 Meq In D5-1/2ns) 1,000 mls @ 125 mls/hr IV .Q8H [facility] Stop: 02/28/17 18:16 Last Admin: 02/27/17 21:03 Dose: 125 mls/hr Morphine Sulfate (Morphine) 2 mg IVP Q4 PRN PRN Reason: Pain, moderate (4-7) Ondansetron HCl (Zofran Inj) 4 mg IVP Q6 PRN PRN Reason: Nausea/Vomiting Physical Exam - Head Exam Head Exam: ATRAUMATIC - Eye Exam Eye Exam: Normal appearance - ENT Exam ENT Exam: Mucous Membranes Dry - Respiratory Exam Respiratory Exam: NORMAL BREATHING PATTERN - Cardiovascular Exam Cardiovascular Exam: +S1, +S2 - GI/Abdominal Exam GI & Abdominal Exam: Normal Bowel Sounds - Extremities Exam Extremities exam: Positive for: normal inspection - Neurological Exam Neurological exam: Oriented x3 - Psychiatric Exam Psychiatric exam: Normal Affect, Normal Mood - Skin Skin Exam: Warm Results - Vital Signs Recent Vital Signs: Last Vital Signs Temp 99.1 F 02/27/17 20:42 Pulse 76 02/27/17 20:42 Resp 18 02/27/17 20:42 BP 105/63 02/27/17 20:42 Pulse Ox 98 02/27/17 20:42 - Labs Result Diagrams: 02/27/17 04:00 02/27/17 04:00 Labs: Laboratory Results - last 24 hr 02/27/17 02/27/17 15:40 20:10 APTT 55.8 H POC Glucose (mg/dL) 70 Assessment & Plan (1) Portal vein thrombosis Assessment and Plan: portal and splenic vein thrombosis agree with therapeutic anticoagulation with heparin drip for now inherited thrombophilia w/u Status: Acute (2) Liver mass Assessment and Plan: f/u MRI liver elevated AFP noted, will add CA 19-9 hepatobiliary surgery f/u Status: Acute (3) Pancreatic mass Assessment and Plan: recommend GI evaluation with Dr. Araiza for EUS with biopsy hepatobiliary surgery f/u Status: Acute (4) Coagulopathy Assessment and Plan: secondary to anticoagulation Thank you for this interesting consult. Status: Acute
[2017-02-28] MEDS: Potassium Ch 20mEq in D5-1/2NS 1,000 ML IV SCH ×3 (03:00→13:45)
--- NOTE | 2017-02-28 07:47 | CP.PCM.PN ---
Subjective - Date & Time of Evaluation Date of Evaluation: 02/28/17 Time of Evaluation: 07:10 - Subjective Subjective: Hepatobiliary Surgery - Dr. Fried Pt S&E. ADAM. Pt has mild epigastric pain, unchanged. He denies any other complaints including N/V, F/C, SOB/CP. Pt is aware of plan for CT today. Objective - Vital Signs/Intake and Output Vital Signs (last 24 hours): Temp Pulse Resp BP Pulse Ox 99.1 F 76 18 105/63 98 02/27/17 20:42 02/27/17 20:42 02/27/17 20:42 02/27/17 20:42 02/27/17 20:42 - Medications Medications: Current Medications Potassium Chloride/Dextrose/Sod Cl (Potassium Chl 20 Meq In D5-1/2ns) 1,000 mls @ 125 mls/hr IV .Q8H KIMBERLY Stop: 02/28/17 18:16 Last Admin: 02/28/17 04:56 Dose: 125 mls/hr Morphine Sulfate (Morphine) 2 mg IVP Q4 PRN PRN Reason: Pain, moderate (4-7) Ondansetron HCl (Zofran Inj) 4 mg IVP Q6 PRN PRN Reason: Nausea/Vomiting - Labs Labs: PT 11.4 SECONDS (9.6-11.2) H 02/27/17 04:10 INR 1.10 (0.92-1.08) H 02/27/17 04:10 APTT 55.8 SECONDS (23.3-32.5) H 02/27/17 20:10 - Constitutional Appears: Non-toxic, No Acute Distress - Head Exam Head Exam: ATRAUMATIC, NORMAL INSPECTION - Eye Exam Eye Exam: EOMI, Normal appearance - ENT Exam ENT Exam: Mucous Membranes Moist, Normal Exam - Respiratory Exam Respiratory Exam: NORMAL BREATHING PATTERN. absent: Chest Wall Tenderness, Decreased Breath Sounds - Cardiovascular Exam Cardiovascular Exam: REGULAR RHYTHM, +S1, +S2 - GI/Abdominal Exam GI & Abdominal Exam: Soft, Tenderness (mild ttp epigastric). absent: Distended , Guarding, Rigid - Extremities Exam Extremities Exam: absent: Calf Tenderness, Pedal Edema - Psychiatric Exam Psychiatric exam: Normal Affect, Normal Mood - Skin Skin Exam: Intact, Normal Color, Warm Assessment and Plan - Assessment and Plan (Free Text) Assessment: 26M w/ no PMH, w/ epigastric pain, found to have portal and splenic vein thrombosis and hepatic mass Plan: - Triple phase CT Liver results reviewed - F/U Hypercoagulable w/u - Heparin drip for anticoagulation, No oral anticoagulants DW Dr Fried
--- NOTE | 2017-02-28 08:28 | CP.PCM.PN ---
<Morris Andre - Last Filed: 02/28/17 10:29> Subjective - Date & Time of Evaluation Date of Evaluation: 02/28/17 Time of Evaluation: 08:00 - Subjective Subjective: Hospitalist progress note 26 y/o M seen at bedside in not acute distress. Patient is c/o mild epigastric pain, denies vomiting, nausea, diarrhea, dizziness. Had 1 normal BM yesterday. He is on NPO and is voiding with no difficulty. He states pain is constant, 2/10 , improved since admission and no radiation to back or any other places. Afebrile. He underwent Abd MRI and official report is still pending. he was evaluated by Hematology and Sx team. Patient is Jehovah Witness, I discussed with him about the possible need of blood transfusion if he needs surgery. Patient will think about it and will make a decision later. Objective - Vital Signs/Intake and Output Vital Signs (last 24 hours): Temp Pulse Resp BP Pulse Ox 98.1 F 82 20 113/72 96 02/28/17 07:58 02/28/17 07:58 02/28/17 07:58 02/28/17 07:58 02/28/17 07:58 - Medications Medications: Current Medications Potassium Chloride/Dextrose/Sod Cl (Potassium Chl 20 Meq In D5-1/2ns) 1,000 mls @ 125 mls/hr IV .Q8H [facility]IMBERLY Stop: 02/28/17 18:16 Last Admin: 02/28/17 04:56 Dose: 125 mls/hr Morphine Sulfate (Morphine) 2 mg IVP Q4 PRN PRN Reason: Pain, moderate (4-7) Ondansetron HCl (Zofran Inj) 4 mg IVP Q6 PRN PRN Reason: Nausea/Vomiting - Labs Labs: PT 11.4 SECONDS (9.6-11.2) H 02/27/17 04:10 INR 1.10 (0.92-1.08) H 02/27/17 04:10 APTT 67.5 SECONDS (23.3-32.5) H* D 02/28/17 06:05 - Constitutional Appears: Non-toxic, No Acute Distress - Head Exam Head Exam: ATRAUMATIC, NORMAL INSPECTION - Eye Exam Eye Exam: PERRL - ENT Exam ENT Exam: Mucous Membranes Moist, Normal Exam - Neck Exam Neck Exam: Full ROM, Normal Inspection - Respiratory Exam Respiratory Exam: Clear to Ausculation Bilateral, NORMAL BREATHING PATTERN. absent: Rales, Wheezes - Cardiovascular Exam Cardiovascular Exam: REGULAR RHYTHM, +S1, +S2. absent: Murmur - GI/Abdominal Exam GI & Abdominal Exam: Soft, Tenderness (mild tender deep palpation of epigastrium ), Normal Bowel Sounds. absent: Distended, Guarding, Mass, Rebound - Extremities Exam Extremities Exam: Full ROM, Normal Capillary Refill, Normal Inspection. absent : Calf Tenderness, Pedal Edema - Back Exam Back Exam: NORMAL INSPECTION. absent: CVA tenderness (L), CVA tenderness (R) - Neurological Exam Neurological Exam: Alert, Awake, CN II-XII Intact, Normal Gait, Oriented x3 Neuro motor strength exam: Left Upper Extremity: 5, Right Upper Extremity: 5, Left Lower Extremity: 5, Right Lower Extremity: 5 - Psychiatric Exam Psychiatric exam: Normal Affect, Normal Mood - Skin Skin Exam: Normal Color, Warm Assessment and Plan - Assessment and Plan (Free Text) Assessment: (1) Portal and Splenic vein thrombosis(acute) Portal and splenic vein thrombosis on CT Continue heparin drip Evaluated by Hematology(Dr Becerra) on 02/27/17 F/U hypercoag labs. (2) Pancreatic mass(acute) Head of the pancreas mass reported in [address] F/U abd MRI official report F/U hepatobiliary surgery recommendations F/U IR recommendations F/U GI(Dr Araiza) recommendations (3) Liver mass(acute) F/u abd MRI report elevated AFP noted F/U CA 19-9 F/U hepatobiliary surgery recommendations F/U IR recommendations (4) Coagulopathy(acute) secondary to anticoagulation with heparin <Lakeisha Riley - Last Filed: 02/28/17 16:14> Objective - Vital Signs/Intake and Output Vital Signs (last 24 hours): Temp Pulse Resp BP Pulse Ox 98.1 F 82 20 113/72 96 02/28/17 07:58 02/28/17 07:58 02/28/17 07:58 02/28/17 07:58 02/28/17 07:58 - Medications Medications: Current Medications Potassium Chloride/Dextrose/Sod Cl (Potassium Chl 20 Meq In D5-1/2ns) 1,000 mls @ 125 mls/hr IV .Q8H [facility] Stop: 02/28/17 18:16 Last Admin: 02/28/17 13:45 Dose: Not Given Heparin Sodium/Dextrose (Heparin 25,000 Units/250ml In D5w) 250 mls @ 16 mls/ hr IV .[id number] KIMBERLY PRN Reason: Protocol Morphine Sulfate (Morphine) 2 mg IVP Q4 PRN PRN Reason: Pain, moderate (4-7) Last Admin: 02/28/17 13:42 Dose: 2 mg Ondansetron HCl (Zofran Inj) 4 mg IVP Q6 PRN PRN Reason: Nausea/Vomiting - Labs Labs: PT 11.4 SECONDS (9.6-11.2) H 02/27/17 04:10 INR 1.10 (0.92-1.08) H 02/27/17 04:10 APTT 67.5 SECONDS (23.3-32.5) H* D 02/28/17 06:05 Attending/Attestation - Attestation I have personally seen and examined this patient.: Yes I have fully participated in the care of the patient.: Yes I have reviewed all pertinent clinical information, including history, physical exam and plan: Yes Notes (Text): 02/28/17 16:10 Pt seen and examined. Case discussed with resident, I agree with above assessment and plan outlined in Dr Andre' progress note. A/P: Liver and Pancreatic Mass Portal Vein Thrombosis - cont Heparin drip - GI consulted for EUS and biopsy of Pancreas - discussed case with Dr Araiza - Surgical Oncology consult - Pain mgt - discussed test results with patient and his brother, plan of treatment discussed 02/28/17 16:11
--- NOTE | 2017-02-28 10:49 | CP.PCM.PN ---
Subjective - Date & Time of Evaluation Date of Evaluation: 02/28/17 Time of Evaluation: 09:55 - Subjective Subjective: Patient was seen and examined at the bedside. CT scan results noted Objective - Vital Signs/Intake and Output Vital Signs (last 24 hours): Temp Pulse Resp BP Pulse Ox 98.1 F 82 20 113/72 96 02/28/17 07:58 02/28/17 07:58 02/28/17 07:58 02/28/17 07:58 02/28/17 07:58 - Medications Medications: Current Medications Potassium Chloride/Dextrose/Sod Cl (Potassium Chl 20 Meq In D5-1/2ns) 1,000 mls @ 125 mls/hr IV .Q8H KIMBERLY Stop: 02/28/17 18:16 Last Admin: 02/28/17 04:56 Dose: 125 mls/hr Morphine Sulfate (Morphine) 2 mg IVP Q4 PRN PRN Reason: Pain, moderate (4-7) Ondansetron HCl (Zofran Inj) 4 mg IVP Q6 PRN PRN Reason: Nausea/Vomiting - Labs Labs: PT 11.4 SECONDS (9.6-11.2) H 02/27/17 04:10 INR 1.10 (0.92-1.08) H 02/27/17 04:10 APTT 67.5 SECONDS (23.3-32.5) H* D 02/28/17 06:05 - Constitutional Appears: Well, Non-toxic, No Acute Distress - Head Exam Head Exam: ATRAUMATIC, NORMAL INSPECTION, NORMOCEPHALIC - Eye Exam Eye Exam: EOMI, Normal appearance, PERRL Pupil Exam: NORMAL ACCOMODATION, PERRL - ENT Exam ENT Exam: Mucous Membranes Moist, Normal Exam - Neck Exam Neck Exam: Full ROM, Normal Inspection - Respiratory Exam Respiratory Exam: Clear to Ausculation Bilateral, NORMAL BREATHING PATTERN - Cardiovascular Exam Cardiovascular Exam: REGULAR RHYTHM, +S1, +S2 - GI/Abdominal Exam GI & Abdominal Exam: Soft, Normal Bowel Sounds Additional comments: Very mildly tender in the epigastrium, ND, no rebound, no guarding - Rectal Exam Rectal Exam: Deferred - Extremities Exam Extremities Exam: Full ROM, Normal Inspection - Neurological Exam Neurological Exam: Alert, Awake, CN II-XII Intact, Oriented x3 - Psychiatric Exam Psychiatric exam: Normal Affect, Normal Mood - Skin Skin Exam: Dry, Intact, Normal Color, Warm Assessment and Plan - Assessment and Plan (Free Text) Assessment: 26 y.o. male with a liver and head of the pancreas masses Plan: - Oncology follow up - Surgical oncology follow up - No general surgery intervention at present time - Continue care as per Primary team - General surgery will sign off - Please re-consult general surgery as needed
--- NOTE | 2017-02-28 14:52 | MRI ---
PROCEDURE: MRI abdomen with and without intravenous gadolinium HISTORY: further eval of hepatic mass COMPARISON: CT abdomen 02/27/2017 TECHNIQUE: Multiplanar, multi sequence imaging of the abdomen was performed both with and without intravenous gadolinium administration. FINDINGS: The liver is normal in size. In the inferior right hepatic lobe there is a large mass identified which is hypo intense to liver on T1 weighted images and minimally hyperintense on T2 weighted images. There is bright central scar on T2 weighted imaging. There is a 2nd mass immediately adjacent to this large mass, in the medial right hepatic lobe, inferiorly, measuring approximately 2.4 x 3.4 cm. This mass shows similar signal characteristics to the larger adjacent mass. Following intravenous gadolinium administration, there is rapid enhancement of the periphery of this mass with a spoke wheel pattern and a low signal central scar. Subsequent phases following gadolinium administration show residual enhancing capsule with enhancement of the central scar greater than the surrounding parenchyma. This pattern is not specific. The smaller adjacent mass does not show a central scar but otherwise is isointense to the larger mass. There is no other hepatic mass identified. There is no biliary ductal dilatation. 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 There is portal venous thrombosis. There is signal void in the splenic vein consistent with thrombus. The gallbladder is unremarkable in appearance. The spleen is normal in size, contour and signal intensity. There is no pancreatic mass identified. There is no pancreatic ductal dilatation. There is no adrenal mass. Several bilateral renal cysts are identified, largest approximately 1.7 cm diameter in the lower pole right kidney. Questionable enhancement is seen in the posterior aspect of the lower pole cyst on post gadolinium images although this corresponds to an apparently simple cyst on ultrasound. On T2 weighted images on the current examination, there is apparently dependent low signal material seen within the lower pole cyst on T2 weighted images which may explain the apparent enhancement with gadolinium administration. Followup with ultrasound is advised. There is no retroperitoneal lymphadenopathy. There is no evidence of ascites. IMPRESSION: 2 masses in the right hepatic lobe, 1 large and 1 small with nonspecific enhancement pattern. Associated with this finding is cavernous transformation of the portal vein and splenic venous thrombosis. In the absence of specific findings for a benign neoplasm of the liver, evaluation with percutaneous biopsy is suggested. Additional minor findings as above.
[2017-02-28] MEDS: Heparin 25,000units in D5W 250 ML IV SCH (19:37)
--- NOTE | 2017-02-28 21:39 | CP.PCM.CON ---
History of Present Illness - History of Present Illness History of Present Illness: GI consult requested by hospitalist- Patient was seen earlier today with brother at bedside. Patient is 26 year old male, polish speaking with no past medical history admitted with lower abdominal pain for two weeks and weight loss. He denies past history of liver disease and denies smoking or alcohol use. He has normal LFT but has elevated AFP. ON contrast enhanced MRI he was found to have portal vein thrombosis, liver mass, and splenic vein thrombosis. The patient is currently receiving therapeutic anticoauglation for portal vein thrombosis. Denies change in bowel habits, nausea, vomiting Review of Systems - Review of Systems Review of Systems: 12 point ROS unremarkable except that documented in HPI Past Patient History - Past Medical History & Family History Past Medical History?: No - Past Social History Smoking Status: Never Smoked - MUSCULOSKELETAL/RHEUMATOLOGICAL Hx Falls: No - PSYCHIATRIC Hx Substance Use: No - SURGICAL HISTORY Hx Surgeries: No - ANESTHESIA Hx Anesthesia: No Meds Allergies/Adverse Reactions: Allergies Allergy/AdvReac Type Severity Reaction Status Date / Time No Known Allergies Allergy Verified 02/26/17 11:45 - Medications Medications: Current Medications Heparin Sodium/Dextrose (Heparin 25,000 Units/250ml In D5w) 250 mls @ 16 mls/ hr IV .[id number] KIMBERLY PRN Reason: Protocol Last Admin: 02/28/17 19:37 Dose: 16 mls/hr Morphine Sulfate (Morphine) 2 mg IVP Q4 PRN PRN Reason: Pain, moderate (4-7) Last Admin: 02/28/17 20:04 Dose: 2 mg Ondansetron HCl (Zofran Inj) 4 mg IVP Q6 PRN PRN Reason: Nausea/Vomiting Physical Exam - Constitutional Appears: Non-toxic, No Acute Distress - Head Exam Head Exam: ATRAUMATIC, NORMAL INSPECTION, NORMOCEPHALIC - Eye Exam Eye Exam: EOMI, Normal appearance, PERRL - ENT Exam ENT Exam: Mucous Membranes Moist, Normal Exam - Respiratory Exam Respiratory Exam: Clear to Auscultation Bilateral, NORMAL BREATHING PATTERN - Cardiovascular Exam Cardiovascular Exam: REGULAR RHYTHM - GI/Abdominal Exam GI & Abdominal Exam: Normal Bowel Sounds, Soft. absent: Tenderness Additional comments: Non tender. No guarding or rigidity - Extremities Exam Extremities exam: Positive for: normal inspection - Neurological Exam Neurological exam: Alert, CN II-XII Intact, Normal Gait, Oriented x3, Reflexes Normal - Psychiatric Exam Psychiatric exam: Normal Affect, Normal Mood - Skin Skin Exam: Dry, Intact, Normal Color, Warm Results - Vital Signs Recent Vital Signs: Last Vital Signs Temp 98.5 F 02/28/17 20:25 Pulse 73 02/28/17 20:25 Resp 18 02/28/17 20:25 BP 110/72 02/28/17 20:25 Pulse Ox 100 02/28/17 20:25 - Labs Result Diagrams: 02/27/17 04:00 02/27/17 04:00 Labs: Laboratory Results - last 24 hr 02/28/17 06:05 APTT 67.5 H* D CA 19-9 Antigen 29.0 - Imaging and Cardiology MRI - abdomen Status: Image reviewed by me, Report reviewed by me Assessment & Plan - Assessment and Plan (Free Text) Assessment: This is a 26 yr old male admitted with abdominal pain without history of liver disease. He has elevated LFT. MRI contrast enhanced shows two liver lesions with T2 enhanced central scar mostly seen in focal nodular hyperplasia. Incidentally he was also found to have portal vein thrombus with cavernous transformation which means it is chronic. He also has adjacent splenic vein thrombosis without evidence of pancreatitis. He has no exposure to steroids or testosterone. Hypercoagulable work up has been sent. He is currently on heparin gtt as per hematology. Plan: - Needs IR or EUS guided liver lesion and liver biopsy - Need to rule out non cirrhotic portal hypertension - diet as tolerated - NPO past midnight - Will discuss MRI images with IR in am to discuss if lesions are amenable to biopsy - Heparin gtt to be held at 5 am - Discussed with hospitalist - Will follow closely - Date & Time Date: 02/28/17
[2017-03-01] MEDS: Heparin 25,000units in D5W 250 ML IV SCH (07:19)
[2017-03-01 07:38] LABS: HEMATOCRIT 35.6 % (35.0-51.0); MEAN CELL VOLUME 84.6 fl (80.0-94.0); MEAN CORPUSCULAR HEMOGLOBIN 27.7 pg (27.0-31.0); MEAN CORPUSCULAR HGB CONC 32.7 g/dL (33.0-37.0); RED CELL DISTRIBUTION WIDTH 14.1 % (11.5-14.5); WHITE BLOOD COUNT 4.6 K/uL (4.8-10.8)
[2017-03-01 07:58] LABS: PARTIAL THROMBOPLASTIN TIME 47.8 SECONDS (23.3-32.5)
--- NOTE | 2017-03-01 08:18 | CP.PCM.PN ---
Subjective - Date & Time of Evaluation Date of Evaluation: 03/01/17 Time of Evaluation: 08:15 - Subjective Subjective: Hepatobiliary Surgery - Dr. Fried Pt S&E. ADAM. Pt offers no complaints. He will be going to [facility] for EUS with Dr. Araiza this afternoon Objective - Vital Signs/Intake and Output Vital Signs (last 24 hours): Temp Pulse Resp BP Pulse Ox 98.7 F 86 20 100/61 100 03/01/17 08:02 03/01/17 08:02 03/01/17 08:02 03/01/17 08:02 03/01/17 08:02 - Medications Medications: Current Medications Morphine Sulfate (Morphine) 2 mg IVP Q4 PRN PRN Reason: Pain, moderate (4-7) Last Admin: 02/28/17 20:04 Dose: 2 mg Ondansetron HCl (Zofran Inj) 4 mg IVP Q6 PRN PRN Reason: Nausea/Vomiting - Labs Labs: 03/01/17 05:50 PT 11.4 SECONDS (9.6-11.2) H 02/27/17 04:10 INR 1.10 (0.92-1.08) H 02/27/17 04:10 APTT 47.8 SECONDS (23.3-32.5) H 03/01/17 05:50 - Constitutional Appears: No Acute Distress - Head Exam Head Exam: ATRAUMATIC, NORMOCEPHALIC - Respiratory Exam Respiratory Exam: NORMAL BREATHING PATTERN. absent: Respiratory Distress - Cardiovascular Exam Cardiovascular Exam: REGULAR RHYTHM - GI/Abdominal Exam GI & Abdominal Exam: Soft, Tenderness (mild epigastric). absent: Distended, Guarding, Rebound - Neurological Exam Neurological Exam: Alert, Oriented x3 - Psychiatric Exam Psychiatric exam: Normal Affect, Normal Mood - Skin Skin Exam: Dry, Intact Assessment and Plan - Assessment and Plan (Free Text) Assessment: 26 yo M w/ portal vein thrombosis, liver mass and pancreatic cystic lesion -CT and MRI reviewed -Transfer to [place] for EUS Liver bx today -NPO for procedure -Will F/U results DW Dr. Fariha Jackson PGY2
--- NOTE | 2017-03-01 09:04 | CP.PCM.PN ---
<Morris Andre - Last Filed: 03/01/17 10:41> Subjective - Date & Time of Evaluation Date of Evaluation: 03/01/17 Time of Evaluation: 08:35 - Subjective Subjective: 26 y/o M seen at bedside in not acute distress. Still c/o of mild epigastric pain unchanged since yesterday. Denies diarrhea, vomiting, nausea, dizziness, fever, CP or SOB. Patient tolerated dinner last night. He is now on NPO pending procedure. Patient evalauted with Dr Fried this morning. He recommends liver biopsy today since the likelihood of malignancy is elevated and will continue following up patient. Objective - Vital Signs/Intake and Output Vital Signs (last 24 hours): Temp Pulse Resp BP Pulse Ox 98.7 F 86 20 100/61 100 03/01/17 08:02 03/01/17 08:02 03/01/17 08:02 03/01/17 08:02 03/01/17 08:02 - Medications Medications: Current Medications Morphine Sulfate (Morphine) 2 mg IVP Q4 PRN PRN Reason: Pain, moderate (4-7) Last Admin: 02/28/17 20:04 Dose: 2 mg Ondansetron HCl (Zofran Inj) 4 mg IVP Q6 PRN PRN Reason: Nausea/Vomiting - Labs Labs: 03/01/17 05:50 PT 11.4 SECONDS (9.6-11.2) H 02/27/17 04:10 INR 1.10 (0.92-1.08) H 02/27/17 04:10 APTT 47.8 SECONDS (23.3-32.5) H 03/01/17 05:50 - Constitutional Appears: Non-toxic, No Acute Distress - Head Exam Head Exam: ATRAUMATIC - Eye Exam Eye Exam: PERRL - ENT Exam ENT Exam: Mucous Membranes Moist - Neck Exam Neck Exam: Full ROM, Normal Inspection - Respiratory Exam Respiratory Exam: Clear to Ausculation Bilateral, NORMAL BREATHING PATTERN - Cardiovascular Exam Cardiovascular Exam: REGULAR RHYTHM, +S1, +S2. absent: Murmur - GI/Abdominal Exam GI & Abdominal Exam: Soft, Tenderness (mild tenderness with deep palpation of epigastrium.), Normal Bowel Sounds - Extremities Exam Extremities Exam: Full ROM, Normal Capillary Refill, Normal Inspection - Back Exam Back Exam: NORMAL INSPECTION - Neurological Exam Neurological Exam: Alert, Awake, CN II-XII Intact, Normal Gait, Oriented x3 Neuro motor strength exam: Left Upper Extremity: 5, Right Upper Extremity: 5, Left Lower Extremity: 5, Right Lower Extremity: 5 - Psychiatric Exam Psychiatric exam: Normal Affect, Normal Mood - Skin Skin Exam: Intact, Normal Color, Warm Assessment and Plan - Assessment and Plan (Free Text) Assessment: 26 y/o M admitted for evaluation of liver mass and portal and splenic vein thrombosis. (1) Liver mass(acute) MRI confirmed liver mass, unspecified elevated AFP noted IR does not recommend to perform percutaneous biopsy As per Dr Birch(GI) patient will undergo EUS guided biopsy of the liver parenchyma and lesion if possible Patient was evaluated by Dr Fried, will cont f/u recs. Hep A, B and C work up negative (2) Pancreatic mass(acute) Head of the pancreas mass reported in [address] MRI negative for pancreatic mass F/U EUS and Dr Birch recs CA 19-9 WNL (3) Portal and Splenic vein thrombosis(acute) Portal and splenic vein thrombosis on CT Hold heparin drip for procedure Evaluated by Hematology(Dr Becerra) on 02/27/17 F/U hypercoag labs. <Lakeisha Riley - Last Filed: 03/01/17 19:31> Objective - Vital Signs/Intake and Output Vital Signs (last 24 hours): Temp Pulse Resp BP Pulse Ox 98.2 F 83 20 98/60 L 97 03/01/17 19:14 03/01/17 19:14 03/01/17 19:14 03/01/17 19:14 03/01/17 19:14 - Medications Medications: Current Medications Dextrose/Sodium Chloride (Dextrose 5%-0.45% Ns 500 Ml) 1,000 mls @ 125 mls/hr IV .Q8H KIMBERLY Last Admin: 03/01/17 13:32 Dose: Not Given Morphine Sulfate (Morphine) 2 mg IVP Q4 PRN PRN Reason: Pain, moderate (4-7) Last Admin: 02/28/17 20:04 Dose: 2 mg Ondansetron HCl (Zofran Inj) 4 mg IVP Q6 PRN PRN Reason: Nausea/Vomiting Last Admin: 03/01/17 19:20 Dose: 4 mg - Labs Labs: 03/01/17 05:50 PT 11.2 SECONDS (9.6-11.2) 03/01/17 05:50 INR 1.08 (0.92-1.08) 03/01/17 05:50 APTT 47.8 SECONDS (23.3-32.5) H 03/01/17 05:50 Attending/Attestation - Attestation I have personally seen and examined this patient.: Yes I have fully participated in the care of the patient.: Yes I have reviewed all pertinent clinical information, including history, physical exam and plan: Yes Notes (Text): 03/01/17 19:23 Pt seen and examined with resident, case discussed and I agree with above assessment and plan outlined on Dr Andre' progress note. Liver Mass Suspicious for Malignancy - plan for Endoscopic Liver biopsy today at [place] to be done by Dr Birch - will also eval pancreas and do a biopsy if a mass is seen as MRI did not show pancreatic ,mass seen on CT - case discussed with Dr Birch - Pt is NPO and off Heparin drip -Hematology and Surgery consulted Portal Vein Thrombosis - hypercoagulable work up - off Heparin drip today as pt is for biopsy- of to restart tomorrow as discussed with dr birch above A/P discussed with pt with staff interpreter- 03/01/17 19:30
--- NOTE | 2017-03-01 09:57 | CP.PCM.PN ---
Subjective - Date & Time of Evaluation Date of Evaluation: 03/01/17 Time of Evaluation: 09:50 - Subjective Subjective: RFV: Liver mass S: No acute events. Mild abdominal discomfort. Otherwise, doing ok. Objective - Vital Signs/Intake and Output Vital Signs (last 24 hours): Temp Pulse Resp BP Pulse Ox 98.7 F 86 20 100/61 100 03/01/17 08:02 03/01/17 08:02 03/01/17 08:02 03/01/17 08:02 03/01/17 08:02 - Medications Medications: Current Medications Morphine Sulfate (Morphine) 2 mg IVP Q4 PRN PRN Reason: Pain, moderate (4-7) Last Admin: 02/28/17 20:04 Dose: 2 mg Ondansetron HCl (Zofran Inj) 4 mg IVP Q6 PRN PRN Reason: Nausea/Vomiting - Labs Labs: 03/01/17 05:50 PT 11.2 SECONDS (9.6-11.2) 03/01/17 05:50 INR 1.08 (0.92-1.08) 03/01/17 05:50 APTT 47.8 SECONDS (23.3-32.5) H 03/01/17 05:50 - Constitutional Appears: No Acute Distress - Head Exam Head Exam: ATRAUMATIC, NORMOCEPHALIC - Eye Exam Eye Exam: Normal appearance. absent: Scleral icterus - ENT Exam ENT Exam: Mucous Membranes Moist, Normal Oropharynx - Respiratory Exam Respiratory Exam: Clear to Ausculation Bilateral, NORMAL BREATHING PATTERN. absent: Respiratory Distress - Cardiovascular Exam Cardiovascular Exam: REGULAR RHYTHM, +S1, +S2 - GI/Abdominal Exam GI & Abdominal Exam: Soft. absent: Distended, Tenderness - Neurological Exam Neurological Exam: Alert, Oriented x3 - Psychiatric Exam Psychiatric exam: Normal Affect, Normal Mood - Skin Skin Exam: Dry, Normal Color, Warm Assessment and Plan - Assessment and Plan (Free Text) Assessment: 26 year old male admitted with abdominal pain found to have two liver lesions, as well as portal vein thrombosis and splenic vein thrombosis. 1. Liver lesions 2. Portal vein thrombosis 3. Splenic vein thrombosis Plan: - images were reviewed, there is a large liver lesion with central scar, biopsy was recommended by radiology to evaluate for malignant process - IR reviewed the case; they do not recommend percutaneous biopsy - since percutaneous biopsy was not possible by IR, will proceed with EUS evaluation - will evaluate the pancreas to exclude a pancreatic mass - will evalutate the liver as well and attempt to perform EUS guided core needle biopsy of the liver lesion as well as the liver parenchyma - hold heparin - NPO
[2017-03-01 20:40] LABS: PHOSPHATIDYLSERINE AB IGM <25 U/mL (<25)
[2017-03-01 22:51] LABS: CARDIOLIPIN AB (IGA) <11 APL (<=11)
[2017-03-02 07:16] LABS: BASO % 0.4 % (0.0-2.0); EOS # 0.1 K/uL (0.0-0.7); EOS % 1.4 % (0.0-4.0); HEMATOCRIT 36.8 % (35.0-51.0); LYMPH # 1.9 K/uL (1.0-4.3); LYMPH % 20.7 % (20.0-40.0); MEAN CELL VOLUME 83.3 fl (80.0-94.0); MEAN CORPUSCULAR HEMOGLOBIN 27.3 pg (27.0-31.0); MEAN CORPUSCULAR HGB CONC 32.8 g/dL (33.0-37.0); MEAN PLATELET VOLUME 8.5 fl (7.2-11.7); MONO # 0.6 K/uL (0.0-0.8); MONO % 6.6 % (0.0-10.0); NEUT # 6.6 K/uL (1.8-7.0); NEUT % 70.9 % (50.0-75.0); NRBC % 0.1 % (0.0-0.0); RED CELL DISTRIBUTION WIDTH 14.1 % (11.5-14.5); WHITE BLOOD COUNT 9.3 K/uL (4.8-10.8)
[2017-03-02 07:18] LABS: ALB/GLOB RATIO 1.1 (1.0-2.1); ALKALINE PHOSPHATASE 189 U/L (38-126); ALT/SGPT 23 U/L (21-72); AST/SGOT 65 U/L (17-59); BILIRUBIN,TOTAL 1.2 mg/dl (0.2-1.3); BLOOD UREA NITROGEN 6 mg/dl (9-20); CALCIUM 9.4 mg/dL (8.4-10.2); CARBON DIOXIDE 24 mmol/L (22-30); CHLORIDE 103 mmol/L (98-107); GFR AFRICAN-AMERICAN > 60; GLUCOSE,RANDOM 105 mg/dL (75-110); POTASSIUM 3.6 MMOL/L (3.6-5.0); SODIUM 141 mmol/l (132-148); TOTAL PROTEIN 7.2 G/DL (6.3-8.2)
[2017-03-02] MEDS ORDERED: Pantoprazole 40 mg EC Tab PO SCH (07:30)
[2017-03-02 07:58] LABS: B2 GLYCOPROTEIN I AB(IGA) <9 SAU (<=20); B2 GLYCOPROTEIN I AB(IGG) <9 SGU (<=20); B2 GLYCOPROTEIN I AB(IGM) <9 SMU (<=20); PHOSPHATIDYLSERINE AB IGA <20 U/mL (<20)
[2017-03-02 08:19] VITALS: RESP 20; O2SAT 98
[2017-03-02] MEDS ORDERED: Heparin 25,000units in D5W 250 ML IV SCH (08:30)
--- NOTE | 2017-03-02 09:48 | CP.PCM.PN ---
Subjective - Date & Time of Evaluation Date of Evaluation: 03/02/17 Time of Evaluation: 08:00 - Subjective Subjective: Subjective: Hepatobiliary Surgery - Dr. Fried Pt S&E. ADAM. Pt offers no complaints. Minor abdominal pain to RUQ, pt reports it is largely ignorable. Objective - Vital Signs/Intake and Output Vital Signs (last 24 hours): Temp Pulse Resp BP Pulse Ox 98.4 F 82 20 114/66 98 03/02/17 08:18 03/02/17 08:18 03/02/17 08:18 03/02/17 08:18 03/02/17 08:18 - Medications Medications: Current Medications Dextrose/Sodium Chloride (Dextrose 5%-0.45% Ns 500 Ml) 1,000 mls @ 125 mls/hr IV .Q8H KIMBERLY Last Admin: 03/02/17 04:51 Dose: Not Given Morphine Sulfate (Morphine) 2 mg IVP Q4 PRN PRN Reason: Pain, moderate (4-7) Last Admin: 03/01/17 21:35 Dose: 2 mg Ondansetron HCl (Zofran Inj) 4 mg IVP Q6 PRN PRN Reason: Nausea/Vomiting Last Admin: 03/01/17 19:20 Dose: 4 mg Pantoprazole Sodium (Protonix Ec Tab) 40 mg PO ACB KIMBERLY Last Admin: 03/02/17 09:15 Dose: 40 mg Pantoprazole Sodium (Protonix Ec Tab) 40 mg PO ONCE ONE Stop: 03/02/17 19:33 - Labs Labs: 03/02/17 05:35 03/02/17 05:35 PT 11.2 SECONDS (9.6-11.2) 03/01/17 05:50 INR 1.08 (0.92-1.08) 03/01/17 05:50 APTT 47.8 SECONDS (23.3-32.5) H 03/01/17 05:50 - Constitutional Appears: Well, Non-toxic, No Acute Distress - Eye Exam Eye Exam: EOMI, Normal appearance - Cardiovascular Exam Cardiovascular Exam: REGULAR RHYTHM. absent: Tachycardia - GI/Abdominal Exam GI & Abdominal Exam: Soft, Tenderness (minimal to RUQ), Normal Bowel Sounds. absent: Distended, Firm, Guarding, Rigid - Neurological Exam Neurological Exam: Alert, Awake, Oriented x3 - Psychiatric Exam Psychiatric exam: Normal Affect, Normal Mood - Skin Skin Exam: Intact, Normal Color, Warm Assessment and Plan - Assessment and Plan (Free Text) Assessment: 26 yo M w/ portal vein thrombosis, liver mass and pancreatic cystic lesion, S/P liver biopsy Plan: -continue regular diet. -Will F/U biopsy results from [facility] -pain control -Ok to send home without anticoagulation therapy. -Pt is stable for discharge from General Surgery standpoint. Will f/u with Dr. Fried in office on Thursday 03/08. DW Dr. Fried
[2017-03-02 10:12] LABS: PARTIAL THROMBOPLASTIN TIME 28.7 SECONDS (23.3-32.5)
[2017-03-02 10:18] LABS: PROTHROMBIN TIME 11.7 sec (9.0-11.5); PTT-LA 48 sec (< OR = 40)
--- NOTE | 2017-03-02 13:10 | US ---
HISTORY: Evaluate for mass TECHNIQUE: Grayscale and duplex Doppler examination was performed. COMPARISON: None Available. FINDINGS: RIGHT TESTICLE: Measures 4.5 x 2.1 x 3.3 cm. Normal echotexture and flow. There are small scattered echogenic foci. RIGHT EPIDIDYMIS: Epididymal head measures 1.1 x 0.6 x 1.1 cm. Grossly unremarkable appearance with normal flow. LEFT TESTICLE: Measures 4.4 x 2.1 x 3.4 cm. Normal echotexture and flow. There are small scattered echogenic foci. LEFT EPIDIDYMIS: Epididymal head measures 1.0 x 0.7 x 1.3 cm. Grossly unremarkable appearance with normal flow. HYDROCELE: There is a small right hydrocele. VARICOCELE: None. OTHER FINDINGS: None. IMPRESSION: No evidence for testicular mass or torsion. Testicular microlithiasis. Clinical follow-up is advised and if clinically indicated (accompanied by other premalignant factors) annual ultrasound follow-up may be performed. Small right hydrocele.
--- NOTE | 2017-03-02 13:33 | CP.PCM.DIS ---
<Morris Andre - Last Filed: 03/02/17 14:00> Provider - Provider Date of Admission: 02/27/17 13:58 Attending physician: Di Brady DO Primary care physician: Will see Dr Johnathan Moses at [facility] on 03/07/17 14:00 Consults: Dr Patricia/Dr Araiza(GI) Dr Fried(Hepatobiliary Sx) Dr Brantley(General Sx) Dr Becerra(Hem-onc) Time Spent in preparation of Discharge (in minutes): 40 Diagnosis - Discharge Diagnosis (1) Liver mass Status: Acute Comment: Diagnosed on CT and MRI of the liver. Pending biopsy results after EUS. Will F/U with Dr Celis and Dr Fried as outpatient for further management (2) Pancreatic mass Status: Ruled-out Comment: Ruled out on abd MRI and EUS. Normal CA 19-9 (3) Portal vein thrombosis Status: Chronic Comment: S/P Heparin drip. As per Dr Celis no anticoag needed at this time. 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 F/U with Dr Celis (5) Testicular microlithiasis Status: Chronic Comment: Detected on testicular US. F/U with US yearly recommended (6) Splenic vein thrombosis Status: Chronic Comment: F/U with Dr Celis. No anticoagulation needed Hospital Course - Lab Results Lab Results: Most Recent Lab Values WBC 9.3 K/uL (4.8-10.8) D 03/02/17 05:35 RBC 4.42 Mil/uL (4.40-5.90) 03/02/17 05:35 Hgb 12.1 g/dL (12.0-18.0) 03/02/17 05:35 Hct 36.8 % (35.0-51.0) 03/02/17 05:35 MCV 83.3 fl (80.0-94.0) 03/02/17 05:35 MCH 27.3 pg (27.0-31.0) 03/02/17 05:35 MCHC 32.8 g/dL (33.0-37.0) L 03/02/17 05:35 RDW 14.1 % (11.5-14.5) 03/02/17 05:35 Plt Count 264 K/uL (130-400) 03/02/17 05:35 MPV 8.5 fl (7.2-11.7) 03/02/17 05:35 Neut % (Auto) 70.9 % (50.0-75.0) 03/02/17 05:35 Lymph % (Auto) 20.7 % (20.0-40.0) 03/02/17 05:35 [place] % (Auto) 6.6 % (0.0-10.0) 03/02/17 05:35 Eos % (Auto) 1.4 % (0.0-4.0) 03/02/17 05:35 Baso % (Auto) 0.4 % (0.0-2.0) 03/02/17 05:35 Neut # 6.6 K/uL (1.8-7.0) 03/02/17 05:35 Lymph # 1.9 K/uL (1.0-4.3) 03/02/17 05:35 [place] # 0.6 K/uL (0.0-0.8) 03/02/17 05:35 Eos # 0.1 K/uL (0.0-0.7) 03/02/17 05:35 Baso # 0.0 K/uL (0.0-0.2) 03/02/17 05:35 PT 12.0 SECONDS (9.6-11.2) H 03/02/17 08:57 INR 1.15 (0.92-1.08) H 03/02/17 08:57 APTT 28.7 SECONDS (23.3-32.5) D 03/02/17 08:57 Protein C Activity 141 % (70-180) 02/26/17 21:00 Protein S Activity 68 % (70-150) L 02/26/17 21:00 Protein S Antigen 135 % (70-140) 02/26/17 21:00 Antithrombin III Activ 126 % activity (80-120) H 02/26/17 21:00 Factor V Activity 118 % (65-150) 02/26/17 21:00 Sodium 141 mmol/l (132-148) 03/02/17 05:35 Potassium 3.6 MMOL/L (3.6-5.0) 03/02/17 05:35 Chloride 103 mmol/L (98-107) 03/02/17 05:35 Carbon Dioxide 24 mmol/L (22-30) 03/02/17 05:35 Anion Gap 19 (10-20) 03/02/17 05:35 BUN 6 mg/dl (9-20) L 03/02/17 05:35 Creatinine 0.7 mg/dL (0.8-1.5) L 03/02/17 05:35 Est GFR ( Amer) > 60 03/02/17 05:35 Est GFR (Non-Af Amer) > 60 03/02/17 05:35 POC Glucose (mg/dL) 70 mg/dL (65-110) 02/27/17 15:40 Random Glucose 105 mg/dL (75-110) 03/02/17 05:35 Calcium 9.4 mg/dL (8.4-10.2) 03/02/17 05:35 Total Bilirubin 1.2 mg/dl (0.2-1.3) 03/02/17 05:35 AST 65 U/L (17-59) H 03/02/17 05:35 ALT 23 U/L (21-72) 03/02/17 05:35 Alkaline Phosphatase 189 U/L (38-126) H 03/02/17 05:35 Troponin I < 0.0120 ng/mL (0.00-0.120) 02/26/17 13:10 Total Protein 7.2 G/DL (6.3-8.2) 03/02/17 05:35 Albumin 3.8 g/dL (3.5-5.0) 03/02/17 05:35 Globulin 3.4 gm/dL (2.2-3.9) 03/02/17 05:35 Albumin/Globulin Ratio 1.1 (1.0-2.1) 03/02/17 05:35 Amylase 83 U/L (30-110) 02/26/17 13:10 Lipase 92 U/L (23-300) 02/26/17 13:10 Alpha Fetoprotein 372.0 IU/mL (0.0-7.22) H 02/27/17 06:15 CA 19-9 Antigen 29.0 U/mL (0-37) 02/28/17 06:05 Urine Color Mallory (YELLOW) 02/26/17 13:25 Urine Clarity Cloudy (Clear) 02/26/17 13:25 Urine pH 7.0 (5.0-8.0) 02/26/17 13:25 Ur Specific [facility] 1.028 (1.003-1.030) 02/26/17 13:25 Urine Protein 30 mg/dL (NEGATIVE) 02/26/17 13:25 Urine Glucose (UA) Neg mg/dL (Normal) 02/26/17 13:25 Urine Ketones Negative mg/dL (NEGATIVE) 02/26/17 13:25 Urine Blood Negative (NEGATIVE) 02/26/17 13:25 Urine Nitrate Negative (NEGATIVE) 02/26/17 13:25 Urine Bilirubin Small (NEGATIVE) 02/26/17 13:25 Urine Urobilinogen 4.0 mg/dL (0.2-1.0) 02/26/17 13:25 Ur Leukocyte Esterase Neg Yolanda/uL (Negative) 02/26/17 13:25 Ur Squamous Epith Cells 1 /hpf (0-5) 02/26/17 13:25 Amorphous Sediment Rare /ul (<OCC) H 02/26/17 13:25 Urine Bacteria Rare (<OCC) 02/26/17 13:25 Taau-6-Vysbggldlgad Ab <9 SHANTI (<=20) 02/26/17 21:00 Beta-2 GPI IgG Ab <9 SGU (<=20) 02/26/17 21:00 Beta-2 GPI IgM Ab <9 SMU (<=20) 02/26/17 21:00 Phosphatidylserine IgG <10 U/mL (<10) 02/26/17 21:00 Phosphatidylserine IgA <20 U/mL (<20) 02/26/17 21:00 Phosphatidylserine IgM <25 U/mL (<25) 02/26/17 21:00 Anti-Phospholipid Intrp see note (()) 02/26/17 21:00 Anti-Cardiolipin IgG Ab <14 GPL (<=14) 02/26/17 21:00 Anti-Cardiolipin IgA Ab <11 APL (<=11) 02/26/17 21:00 Anti-Cardiolipin IgM Ab <12 MPL (<=12) 02/26/17 21:00 Hepatitis A IgM Ab Negative (NEGATIVE) 02/27/17 04:00 Hep Bs Antigen Negative (NEGATIVE) 02/27/17 04:00 Hep B Core IgM Ab Negative (NEGATIVE) 02/27/17 04:00 Hepatitis C Antibody Negative (NEGATIVE) 02/27/17 04:00 - Hospital Course Hospital Course: 26 y/o M with no significant PMHx presented to ED because of persistent abd pain 4 days ago. Patient reported c/o epigastric pain for 2 weeks previous to his admission to the hosp. He states he decided to come to ED after pain increased in intensity. No episodes of vomiting, diarrhea, changes in urination or stool reported. While in ED CT scan of the abd showed Portal, Splenic thrombosis and a liver mass. Patient was admitted with oral anticoags for further work up. FHx: Father from liver cancer 6 years ago Pertinent labs: CBC: WNL Coags: PT/INR mildly elevated ALP: Elevated AFP: Elevated Ca 19-9 normal Hypercoag work up negative. Hepatitis work up negative Liver [address]: Liver mass, Pancreatic mass, portal and splenic thrombosis MRI abd: Ruled out Pancreatic Mass. Confirmed Liver mass. EUS with guided biopsy at [facility] by Dr Araiza: Ruled out pancreatic mass. Confirmed Liver mass, splenic and portal thrombosis. Portal HTN with esophageal varices. Biopsy samples taken from Liver lesion and liver parenchyma: Results pending Testicular US(AFP elevated): Microlithiasis. No masses. F/U yearly with US As per Dr Celis patient does not need anticoag due to chronicity of thrombosis Dr Fried contacted: ok to DC patient after EUS results and F/U in his clinic on 03/08/17 F/U with Dr Celis on MondayMarch 13, 13:20 F/U with Dr Moses at [facility] on Monday03/07/17 at 14:00 Patient is revaluated after testicular US. Discharge plan discussed with patient and provided with list of appt for next week. Patient understand and agreed to f/u Today he is stable. States abd pain is almost nonexistent. He is tolerating PO reg diet, no changes in urination or stools. Afebrile. No home meds. Discharge Exam - Head Exam Head Exam: ATRAUMATIC - Eye Exam Eye Exam: Normal appearance, PERRL - ENT Exam ENT Exam: Mucous Membranes Moist - Neck Exam Neck exam: Full Rom, Normal Inspection - Respiratory Exam Respiratory Exam: Clear to PA & Lateral, NORMAL BREATHING PATTERN. absent: Rales, Wheezes - Cardiovascular Exam Cardiovascular Exam: REGULAR RHYTHM, +S1, +S2. absent: Systolic Murmur - GI/Abdominal Exam GI & Abdominal Exam: Normal Bowel Sounds, Soft, Tenderness (mild tenderness with deep epigastric palpation). absent: Distended, Guarding, Hernia, Rebound - Exam Exam: NORMAL INSPECTION. absent: Scrotal Swelling, Testicular Tenderness, Uretheral Discharge - Extremities Exam Extremities exam: normal capillary refill - Back Exam Back exam: absent: CVA tenderness (L), CVA tenderness (R) - Neurological Exam Neurological exam: Alert, Normal Gait, Oriented x3 - Psychiatric Exam Psychiatric exam: Normal Affect, Normal Mood - Skin Skin Exam: Normal Color, Warm Discharge Plan - Follow Up Plan Condition: STABLE Disposition: HOME/ ROUTINE Instructions: Venous Thromboembolism (DC) Additional Instructions: appt [facility] with Dr. Moses 03/07 at 2:[address] Celis at the GI clinic next wk 03/13/17 at 12:[address] Fried on Monday appt with Dr Becerra [facility] if pathology result is + for malignancy Referrals: Tomas Becerra MD [Staff Provider] - Leonard Fried MD [Medical Doctor] - <Lakeisha Riley - Last Filed: 03/02/17 18:16> Provider - Provider Date of Admission: 02/27/17 13:58 Attending physician: Di Brady DO Hospital Course - Lab Results Lab Results: Most Recent Lab Values WBC 9.3 K/uL (4.8-10.8) D 03/02/17 05:35 RBC 4.42 Mil/uL (4.40-5.90) 03/02/17 05:35 Hgb 12.1 g/dL (12.0-18.0) 03/02/17 05:35 Hct 36.8 % (35.0-51.0) 03/02/17 05:35 MCV 83.3 fl (80.0-94.0) 03/02/17 05:35 MCH 27.3 pg (27.0-31.0) 03/02/17 05:35 MCHC 32.8 g/dL (33.0-37.0) L 03/02/17 05:35 RDW 14.1 % (11.5-14.5) 03/02/17 05:35 Plt Count 264 K/uL (130-400) 03/02/17 05:35 MPV 8.5 fl (7.2-11.7) 03/02/17 05:35 Neut % (Auto) 70.9 % (50.0-75.0) 03/02/17 05:35 Lymph % (Auto) 20.7 % (20.0-40.0) 03/02/17 05:35 [place] % (Auto) 6.6 % (0.0-10.0) 03/02/17 05:35 Eos % (Auto) 1.4 % (0.0-4.0) 03/02/17 05:35 Baso % (Auto) 0.4 % (0.0-2.0) 03/02/17 05:35 Neut # 6.6 K/uL (1.8-7.0) 03/02/17 05:35 Lymph # 1.9 K/uL (1.0-4.3) 03/02/17 05:35 [place] # 0.6 K/uL (0.0-0.8) 03/02/17 05:35 Eos # 0.1 K/uL (0.0-0.7) 03/02/17 05:35 Baso # 0.0 K/uL (0.0-0.2) 03/02/17 05:35 PT 12.0 SECONDS (9.6-11.2) H 03/02/17 08:57 INR 1.15 (0.92-1.08) H 03/02/17 08:57 APTT 27.5 SECONDS (23.3-32.5) 03/02/17 14:45 Protein C Activity 141 % (70-180) 02/26/17 21:00 Protein S Activity 68 % (70-150) L 02/26/17 21:00 Protein S Antigen 135 % (70-140) 02/26/17 21:00 Antithrombin III Activ 126 % activity (80-120) H 02/26/17 21:00 Factor V Activity 118 % (65-150) 02/26/17 21:00 Sodium 141 mmol/l (132-148) 03/02/17 05:35 Potassium 3.6 MMOL/L (3.6-5.0) 03/02/17 05:35 Chloride 103 mmol/L (98-107) 03/02/17 05:35 Carbon Dioxide 24 mmol/L (22-30) 03/02/17 05:35 Anion Gap 19 (10-20) 03/02/17 05:35 BUN 6 mg/dl (9-20) L 03/02/17 05:35 Creatinine 0.7 mg/dL (0.8-1.5) L 03/02/17 05:35 Est GFR ( Amer) > 60 03/02/17 05:35 Est GFR (Non-Af Amer) > 60 03/02/17 05:35 POC Glucose (mg/dL) 70 mg/dL (65-110) 02/27/17 15:40 Random Glucose 105 mg/dL (75-110) 03/02/17 05:35 Calcium 9.4 mg/dL (8.4-10.2) 03/02/17 05:35 Total Bilirubin 1.2 mg/dl (0.2-1.3) 03/02/17 05:35 AST 65 U/L (17-59) H 03/02/17 05:35 ALT 23 U/L (21-72) 03/02/17 05:35 Alkaline Phosphatase 189 U/L (38-126) H 03/02/17 05:35 Troponin I < 0.0120 ng/mL (0.00-0.120) 02/26/17 13:10 Total Protein 7.2 G/DL (6.3-8.2) 03/02/17 05:35 Albumin 3.8 g/dL (3.5-5.0) 03/02/17 05:35 Globulin 3.4 gm/dL (2.2-3.9) 03/02/17 05:35 Albumin/Globulin Ratio 1.1 (1.0-2.1) 03/02/17 05:35 Amylase 83 U/L (30-110) 02/26/17 13:10 Lipase 92 U/L (23-300) 02/26/17 13:10 Alpha Fetoprotein 372.0 IU/mL (0.0-7.22) H 04/10/17 06:15 CA 19-9 Antigen 29.0 U/mL (0-37) 02/28/17 06:05 Urine Color [place] (YELLOW) 02/26/17 13:25 Urine Clarity Cloudy (Clear) 02/26/17 13:25 Urine pH 7.0 (5.0-8.0) 02/26/17 13:25 Ur Specific [facility] 1.028 (1.003-1.030) 02/26/17 13:25 Urine Protein 30 mg/dL (NEGATIVE) 02/26/17 13:25 Urine Glucose (UA) Neg mg/dL (Normal) 02/26/17 13:25 Urine Ketones Negative mg/dL (NEGATIVE) 02/26/17 13:25 Urine Blood Negative (NEGATIVE) 02/26/17 13:25 Urine Nitrate Negative (NEGATIVE) 02/26/17 13:25 Urine Bilirubin Small (NEGATIVE) 02/26/17 13:25 Urine Urobilinogen 4.0 mg/dL (0.2-1.0) 02/26/17 13:25 Ur Leukocyte Esterase Neg Yolanda/uL (Negative) 02/26/17 13:25 Ur Squamous Epith Cells 1 /hpf (0-5) 02/26/17 13:25 Amorphous Sediment Rare /ul (<OCC) H 02/26/17 13:25 Urine Bacteria Rare (<OCC) 02/26/17 13:25 Kofp-1-Tcxjpocgusrm Ab <9 SHANTI (<=20) 02/26/17 21:00 Beta-2 GPI IgG Ab <9 SGU (<=20) 02/26/17 21:00 Beta-2 GPI IgM Ab <9 SMU (<=20) 02/26/17 21:00 Phosphatidylserine IgG <10 U/mL (<10) 02/26/17 21:00 Phosphatidylserine IgA <20 U/mL (<20) 02/26/17 21:00 Phosphatidylserine IgM <25 U/mL (<25) 02/26/17 21:00 Anti-Phospholipid Intrp see note (()) 02/26/17 21:00 Anti-Cardiolipin IgG Ab <14 GPL (<=14) 02/26/17 21:00 Anti-Cardiolipin IgA Ab <11 APL (<=11) 02/26/17 21:00 Anti-Cardiolipin IgM Ab <12 MPL (<=12) 02/26/17 21:00 Hepatitis A IgM Ab Negative (NEGATIVE) 02/27/17 04:00 Hep Bs Antigen Negative (NEGATIVE) 02/27/17 04:00 Hep B Core IgM Ab Negative (NEGATIVE) 02/27/17 04:00 Hepatitis C Antibody Negative (NEGATIVE) 02/27/17 04:00 Attending/Attestation - Attestation I have personally seen and examined this patient.: Yes I have fully participated in the care of the patient.: Yes I have reviewed all pertinent clinical information, including history, physical exam and plan: Yes
[2017-03-02 17:03] VITALS: BP 117/71; PULSE 79; TEMP 98.3
[2017-03-02] MEDS ORDERED: Pantoprazole 40 mg EC Tab PO ONE (19:32)
== END 2017-03-02 18:56 | disposition home or self-care (01) | DRG 556 ==
LOC: H.ER 11:29 → H.ERHOLD 17:55 → H.MEDSURG1 20:26 → OBSVTOIN 02-27 13:58
PROVIDERS: ADMIT Student in an Organized Health Care Education/Training Program; ATTEND Student in an Organized Health Care Education/Training Program
PROC: 0FB24ZX Excision of Left Lobe Liver, Percutaneous Endoscopic Approach, Diagnostic (ICD-10-PCS; principal; 2017-03-01)
PROC: 0FB14ZX Excision of Right Lobe Liver, Percutaneous Endoscopic Approach, Diagnostic (ICD-10-PCS; 2017-03-01)
PROC: 0DB68ZX Excision of Stomach, Via Natural or Artificial Opening Endoscopic, Diagnostic (ICD-10-PCS; 2017-03-01)
PROC: BD42ZZZ Ultrasonography of Stomach (ICD-10-PCS; 2017-03-01)
DX: R16.0 Hepatomegaly, not elsewhere classified (principal); I81 Portal vein thrombosis; I82.0 Budd-Chiari syndrome; K76.6 Portal hypertension; I85.10 Secondary esophageal varices without bleeding; N50.89 Other specified disorders of the male genital organs; K25.9 Gastric ulcer, unspecified as acute or chronic, without hemorrhage or perforation; K26.9 Duodenal ulcer, unspecified as acute or chronic, without hemorrhage or perforation; T45.515A Adverse effect of anticoagulants, initial encounter; R79.1 Abnormal coagulation profile